=== PATIENT | female | born 1960 | race Caucasian/White ===

== ENCOUNTER 2017-09-10 11:24 | Emergency (ER) | payer SELFPAY ==
[2017-09-10] MEDS ORDERED: NORMAL SALINE 1000 ML 1,000 ML IV PRN (11:35)
[2017-09-10] MEDS ORDERED: KETOROLAC TROMETHAMINE INJ/PF 30 MG/1 ML SDV IV ONE (11:36)
--- NOTE | 2017-09-10 11:37 | ER Document Report ---
ED Medical Screen (RME) - General Chief Complaint: Flank Pain Stated Complaint: POSSIBLE KIDNEY INFECTION Time Seen by Provider: 09/10/17 11:35 Notes: Patient states she is having right lower back pain. She denies any dysuria urgency or frequency. No hematuria. She states she went to urgent care yesterday and was told that they were unsure if she had an infection and also she was told something about "midstream". She states they did give her a shot of antibiotics and send her home with Cipro. She states she feels worse today. TRAVEL OUTSIDE OF THE [place] IN LAST 30 DAYS: No - Related Data Allergies/Adverse Reactions: No Known Drug Allergies Allergy (Verified 09/10/17 11:27) Home Medications: Current Home Medications Tramadol HCl 1 tab PO DAILY PRN 09/10/17 [History] Past Medical History - Social History Chew tobacco use (# tins/day): No Frequency of alcohol use: None Drug Abuse: None Renal/ Medical History: Denies: Hx Peritoneal Dialysis Malignancy Medical History: Reports: Hx Cervical Cancer GI Medical History: Reports: Hx Colonoscopy Past Surgical History: Reports: Hx Cholecystectomy, Hx Hysterectomy, Hx Kidney ( Renal Surgery) - left nephrectomy Physical Exam - Vital signs Vitals: Temp Pulse Resp BP Pulse Ox 98.3 F 70 20 158/71 H 99 09/10/17 11:27 09/10/17 11:27 09/10/17 11:27 09/10/17 11:27 09/10/17 11:27 Course - Vital Signs Vital signs: Temp Pulse Resp BP Pulse Ox 98.3 F 70 20 158/71 H 99 09/10/17 11:27 09/10/17 11:27 09/10/17 11:27 09/10/17 11:27 09/10/17 11:27
[2017-09-10 12:19] LABS: ABSOLUTE EOSINOPHILS # (AUTO) 0.1 10^3/uL (0.0-0.6); ABSOLUTE LYMPHOCYTES (AUTO) 2.1 10^3/uL (0.5-4.7); ABSOLUTE MONOCYTES (AUTO) 0.6 10^3/uL (0.1-1.4); ABSOLUTE NEUT (AUTO) 4.2 10^3/uL (1.7-8.2); BASOPHILS % (AUTO) 0.7 % (0-2); EOSINOPHILS % (AUTO) 1.4 % (0-6); HEMATOCRIT 42.3 % (36.0-47.0); HEMOGLOBIN 14.9 g/dL (12.0-15.5); HGB HCT DIFFERENCE 2.4; LYMPHOCYTES % (AUTO) 30.3 % (13-45); MEAN CORPUSCULAR HEMOGLOBIN 32.6 pg (27.0-33.4); MEAN CORPUSCULAR HGB CONC 35.3 g/dL (32.0-36.0); MEAN CORPUSCULAR VOLUME 92 fl (80-97); MONOCYTES % (AUTO) 8.8 % (3-13); RED BLOOD COUNT 4.57 10^6/uL (3.72-5.28); RED CELL DISTRIBUTION WIDTH 12.8 % (11.5-14.0); SEGMENTED NEUTROPHILS % (AUTO) 58.8 % (42-78); WHITE BLOOD COUNT 7.1 10^3/uL (4.0-10.5)
[2017-09-10 12:24] LABS: APPEARANCE,URINE CLEAR; BILIRUBIN,URINE NEGATIVE (NEGATIVE); GLUCOSE, URINE NEGATIVE (NEGATIVE); KETONES,URINE NEGATIVE (NEGATIVE); LEUKOCYTE ESTERASE,URINE NEGATIVE (NEGATIVE); NITRITE,URINE NEGATIVE (NEGATIVE); PROTEIN,URINE NEGATIVE (NEGATIVE); URINE SPECIFIC GRAVITY 1.002; UROBILINOGEN,URINE NEGATIVE mg/dL (<2.0)
[2017-09-10 12:36] LABS: ALANINE AMINOTRANSFERASE 48 U/L (9-52); ALBUMIN 4.6 g/dL (3.5-5.0); ALKALINE PHOSPHATASE 58 U/L (38-126); ANION GAP 12 (5-19); ASPARTATE AMINO TRANSFERASE 42 U/L (14-36); BILIRUBIN,DIRECT 0.5 mg/dL (0.0-0.4); BILIRUBIN,TOTAL 0.7 mg/dL (0.2-1.3); BLOOD UREA NITROGEN 16 mg/dL (7-20); CALCIUM 9.8 mg/dL (8.4-10.2); CARBON DIOXIDE 27 mmol/L (22-30); CHLORIDE 104 mmol/L (98-107); GLUCOSE 79 mg/dL (75-110); SODIUM 142.8 mmol/L (137-145); TOTAL PROTEIN 7.5 g/dL (6.3-8.2)
--- NOTE | 2017-09-10 15:03 | RADIOLOGY REPORT (SQ) ---
EXAM DESCRIPTION: CT LTD RENAL STONE PROTOCOL ON COMPLETED DATE/TIME: 09/10/2017 2:17 pm REASON FOR STUDY: right flank COMPARISON: None. TECHNIQUE: CT scan of the abdomen and pelvis performed without intravenous or oral contrast. Images reviewed with lung, soft tissue, and bone windows. Reconstructed coronal and sagittal MPR images revi ewed. All images stored on PACS. All CT scanners at this facility use dose modulation, iterative reconstruction, and/or weight based d osing when appropriate to reduce radiation dose to as low as reasonably achievable (ALARA). [facility]: Dose Right [facility]: CareDose [facility]: Dose Right [facility]: Teradose 4D [facility]: [employer] Technologies RADIATION DOSE: CT Rad equipment meets quality standard of care and radiation dose reduction techniq ues were employed. CTDIvol: 3.2 mGy. DLP: 167 mGy-cm.mGy. LIMITATIONS: None. FINDINGS: LOWER CHEST: No significant findings. No nodules or infiltrates. NON-CONTRASTED LIVER, SPLEEN, ADRENALS: Multiple hepatic cysts. No solid liver lesions. No ductal d ilatation. PANCREAS: No masses. No peripancreatic inflammatory changes. GALLBLADDER: No identified stones by CT criteria. No inflammatory changes to suggest cholecystitis. RIGHT KIDNEY AND URETER: No suspicious masses. Assessment limited by lack of IV contrast. No signif icant calcifications. No hydronephrosis or hydroureter. LEFT KIDNEY AND URETER -status post nephrectomy. Postoperative clips. AORTA AND RETROPERITONEUM: No aneurysm. No retroperitoneal masses or adenopathy. BOWEL AND PERITONEAL CAVITY: No obvious masses or inflammatory changes. No free fluid. APPENDIX: Normal. PELVIS, BLADDER, AND ABDOMINAL WALL:No abnormal masses. No free fluid. Bladder normal. BONES: Scoliosis OTHER: No other significant finding. IMPRESSION: Status post left nephrectomy. No pathology involving the right kidney or bladder. No a cute findings to explain the patient's clinical symptoms. COMMENT: Quality ID # [id number]: Final reports with documentation of one or more dose reduction techniques (e.g., Automated exposure control, adjustment of the mA and/or kV according to patient size, use of iterative reconstruction technique) TECHNICAL DOCUMENTATION: JOB ID: [id number]- All Rights Reserved
--- NOTE | 2017-09-10 16:07 | ER Document Report ---
ED General - General Chief Complaint: Flank Pain Stated Complaint: POSSIBLE KIDNEY INFECTION Time Seen by Provider: 09/10/17 11:35 TRAVEL OUTSIDE OF THE [place] IN LAST 30 DAYS: No - HPI Patient complains to provider of: Right flank pain Notes: Patient coming in for evaluation of right flank pain. Patient has a history of a left nephrectomy. Patient states was seen yesterday local urgent care diagnosed with UTIs that she had bacteria in the urine however patient states last night started having severe right flank pain. Patient is concerned about a kidney stone. Denies fever chills nausea vomiting diarrhea. Patient states compliant with her medications. Patient upon my evaluation is resting comfortably. Patient states the pain is spasm he coming in episodes and waves - Related Data Allergies/Adverse Reactions: No Known Drug Allergies Allergy (Verified 09/10/17 11:27) Home Medications: Current Home Medications Tramadol HCl 1 tab PO DAILY PRN 09/10/17 [History] Past Medical History - Social History Smoking Status: Current Every Day Smoker Chew tobacco use (# tins/day): No Frequency of alcohol use: None Drug Abuse: None Family History: Other - Strong family history of Diverticulitis. Patient has suicidal ideation: No Patient has homicidal ideation: No Renal/ Medical History: Denies: Hx Peritoneal Dialysis Malignancy Medical History: Reports: Hx Cervical Cancer GI Medical History: Reports: Hx Colonoscopy Past Surgical History: Reports: Hx Cholecystectomy, Hx Hysterectomy, Hx Kidney ( Renal Surgery) - left nephrectomy Review of Systems - Review of Systems Constitutional: No symptoms reported EENT: No symptoms reported Cardiovascular: No symptoms reported Respiratory: No symptoms reported Gastrointestinal: No symptoms reported Genitourinary: Flank pain Female Genitourinary: No symptoms reported Musculoskeletal: No symptoms reported Skin: No symptoms reported Hematologic/Lymphatic: No symptoms reported Neurological/Psychological: No symptoms reported -: Yes All other systems reviewed and negative Physical Exam - Vital signs Vitals: Temp Pulse Resp BP Pulse Ox 98.3 F 70 20 158/71 H 99 09/10/17 11:27 09/10/17 11:27 09/10/17 11:27 09/10/17 11:27 09/10/17 11:27 Interpretation: Normal - General General appearance: Appears well, Alert - HEENT Head: Normocephalic, Atraumatic Eyes: Normal Pupils: PERRL - Respiratory Respiratory status: No respiratory distress Chest status: Nontender Breath sounds: Normal Chest palpation: Normal - Cardiovascular Rhythm: Regular Heart sounds: Normal auscultation Murmur: No - Abdominal Inspection: Normal Distension: No distension Bowel sounds: Normal Tenderness: Nontender Organomegaly: No organomegaly - Back Back: Normal, Nontender - Extremities General upper extremity: Normal inspection, Nontender, Normal color, Normal ROM , Normal temperature General lower extremity: Normal inspection, Nontender, Normal color, Normal ROM , Normal temperature, Normal weight bearing. No: Britton's sign - Neurological Neuro grossly intact: Yes Cognition: Normal Orientation: AAOx4 Fahad Coma Scale Eye Opening: Spontaneous F[place]ad Coma Scale Verbal: Oriented Fahad Coma Scale Motor: Obeys Commands [place] Coma Scale Total: 15 Speech: Normal Motor strength normal: LUE, RUE, LLE, RLE Sensory: Normal - Psychological Associated symptoms: Normal affect, Normal mood - Skin Skin Temperature: Warm Skin Moisture: Dry Skin Color: Normal Course - Re-evaluation Re-evalutation: 09/10/17 18:26 CT scan urinalysis and laboratory studies not reveal any critical pathology. I had no reason for the patient's flank pain this time also have noted emergent criteria for her flank pain patient may be having ureteral spasms or muscle spasms. Patient already has a prescription for Percocet patient is to continue her Percocet also add Pyridium patient will be discharged home - Vital Signs Vital signs: Temp Pulse Resp BP Pulse Ox 98.2 F 72 20 108/65 97 09/10/17 16:19 09/10/17 16:19 09/10/17 11:27 09/10/17 16:19 09/10/17 16:19 - Laboratory Result Diagrams: 09/10/17 11:40 09/10/17 11:40 Laboratory results interpreted by me: 09/10/17 11:40 Direct Bilirubin 0.5 H AST 42 H Discharge - Discharge Clinical Impression: Flank pain Condition: Good Disposition: HOME, SELF-CARE Instructions: Flank Pain ([facility]) Additional Instructions: You were seen today for flank pain. Your CAT scan laboratory studies not reveal any critical pathology. The CAT scan does not show any signs of kidney stones or other infection your urinalysis also does not show any signs of infection. Please continue the medications prescribed by the urgent care he recently saw. We can also try to treat her pain with Pyridium. I would also recommend taking Tylenol Motrin follow-up with your primary care physician in the next 3-4 days Prescriptions: Phenazopyridine HCl [Pyridium 100 Mg Tablet] 100 mg PO TID #15 tablet Forms: Return to Work
[2017-09-10 16:28] VITALS: BP 108/65
== END 2017-09-10 16:29 | disposition home or self-care (01) ==
LOC: ER 11:24
DX: R10.9 Unspecified abdominal pain (principal); Z90.5 Acquired absence of kidney; F17.200 Nicotine dependence, unspecified, uncomplicated; Z79.899 Other long term (current) drug therapy
CPT/HCPCS: 99284; 96361; 96374; 36415; 85025; 80053; 81001; 76380; J1885; J7030

== ENCOUNTER 2018-08-14 17:15 | Emergency (ER) | payer OTHER ==
--- NOTE | 2018-08-14 18:23 | RADIOLOGY REPORT (SQ) ---
EXAM DESCRIPTION: CHEST 2 VIEWS COMPLETED DATE/TIME: 08/14/2018 6:09 pm REASON FOR STUDY: cough COMPARISON: None. EXAM PARAMETERS: NUMBER OF VIEWS: two views TECHNIQUE: Digital Frontal and Lateral radiographic views of the chest acquired. RADIATION DOSE: NA LIMITATIONS: none FINDINGS: LUNGS AND PLEURA: No opacities, masses or pneumothorax. No pleural effusion. MEDIASTINUM AND HILAR STRUCTURES: No masses or contour abnormalities. HEART AND VASCULAR STRUCTURES: Heart normal size. No evidence for failure. BONES: No acute findings. HARDWARE: None in the chest. OTHER: No other significant finding. IMPRESSION: NO ACUTE RADIOGRAPHIC FINDING IN THE CHEST. TECHNICAL DOCUMENTATION: JOB ID: [id number] [employer]- All Rights Reserved Reading location - IP/workstation name: [email or web address]
[2018-08-14] MEDS ORDERED: IPRATROPIUM/ALBUTEROL 0.5-2.5 MG/3 ML AMPUL NEB ONE (18:24)
[2018-08-14] MEDS ORDERED: ACETAMINOPHEN WITH CODEINE #3 TABLET PO ONE (18:24)
[2018-08-14 18:54] LABS: ABSOLUTE BASOPHILS # (AUTO) 0.1 10^3/uL (0.0-0.2); ABSOLUTE LYMPHOCYTES (AUTO) 2.4 10^3/uL (0.5-4.7); ABSOLUTE MONOCYTES (AUTO) 0.8 10^3/uL (0.1-1.4); ABSOLUTE NEUT (AUTO) 3.7 10^3/uL (1.7-8.2); BASOPHILS % (AUTO) 1.1 % (0-2); EOSINOPHILS % (AUTO) 12.1 % (0-6); HEMATOCRIT 42.9 % (36.0-47.0); HEMOGLOBIN 14.6 g/dL (12.0-15.5); LYMPHOCYTES % (AUTO) 29.9 % (13-45); MEAN CORPUSCULAR HEMOGLOBIN 31.7 pg (27.0-33.4); MEAN CORPUSCULAR HGB CONC 34.1 g/dL (32.0-36.0); MEAN CORPUSCULAR VOLUME 93 fl (80-97); MONOCYTES % (AUTO) 9.9 % (3-13); PLATELET COUNT 279 10^3/uL (150-450); RED BLOOD COUNT 4.61 10^6/uL (3.72-5.28); TOTAL CELLS COUNTED % (AUTO) 100 %; WHITE BLOOD COUNT 7.9 10^3/uL (4.0-10.5)
--- NOTE | 2018-08-14 19:06 | ER Document Report ---
ED Respiratory Problem - General Chief Complaint: Cold Symptoms Stated Complaint: COUGH, DIFFICULTY BREATHING Time Seen by Provider: 08/14/18 18:13 Mode of Arrival: Ambulatory Information source: Patient Notes: Patient is a 58-year-old female comes emergency room short of breath and wheezing. Patient did not denies any history of asthma in the past but states for the past 4-5 days she has had congestion runny nose and her cough has gotten severe. Patient states she is coughing up scant amount of some green stuff. She states she has had chills but no fever that she is noted. She has no past medical history. TRAVEL OUTSIDE OF THE [place] IN LAST 30 DAYS: No - HPI Patient complains to provider of: Asthma, Cough, Short of breath Onset: Other - 4 days ago Quality of pain: Achy Severity: Moderate Pain Level: 3 Short of Breath: Moderate Chest pain/discomfort: Constant, Worse with deep breaths Cough: Productive Sputum amount: Small Sputum color: Green, Yellow Sputum consistency: Thick Associated symptoms: Chills, Runny nose, Short of breath, Wheezing Similar symptoms previously: No Recently seen / treated by doctor: No - Related Data Allergies/Adverse Reactions: No Known Drug Allergies Allergy (Verified 09/10/17 11:27) Past Medical History - General Information source: Patient - Social History Smoking Status: Current Every Day Smoker Cigarette use (# per day): Yes - 1 pack a week Chew tobacco use (# tins/day): No Smoking Education Provided: Yes Frequency of alcohol use: Rare Drug Abuse: None Lives with: Family, Spouse/Significant other Family History: Reviewed & Not Pertinent, Other - Strong family history of Diverticulitis. Patient has suicidal ideation: No Patient has homicidal ideation: No Renal/ Medical History: Denies: Hx Peritoneal Dialysis Malignancy Medical History: Reports: Hx Cervical Cancer GI Medical History: Reports: Hx Colonoscopy Past Surgical History: Reports: Hx Cholecystectomy, Hx Hysterectomy, Hx Kidney ( Renal Surgery) - left nephrectomy Review of Systems - Review of Systems Constitutional: Fever, Malaise, Weakness EENT: See HPI, Nose congestion, Sinus pressure Cardiovascular: No symptoms reported Respiratory: Hurts to breathe, Short of breath, Wheezing Gastrointestinal: No symptoms reported Genitourinary: No symptoms reported Female Genitourinary: No symptoms reported Musculoskeletal: No symptoms reported Skin: No symptoms reported Hematologic/Lymphatic: No symptoms reported Neurological/Psychological: No symptoms reported -: Yes All other systems reviewed and negative Physical Exam - Vital signs Vitals: Temp Pulse Resp BP Pulse Ox 98.1 F 65 22 H 131/85 H 98 08/14/18 17:41 08/14/18 17:41 08/14/18 17:41 08/14/18 17:41 08/14/18 17:41 Interpretation: Hypertensive - Notes Notes: PHYSICAL EXAMINATION: GENERAL: Well-appearing, well-nourished and in no acute distress. HEAD: Atraumatic, normocephalic. EYES: Pupils equal round and reactive to light, extraocular movements intact, conjunctiva are normal. ENT: Examination of head and upper airway showed nasal mucosa to be moderately erythematous and edematous with rhinorrhea noted clear. Patient has no frontal or maxillary sinus tenderness to palpation. Examination of bilateral TMs show them both to be bulging with no fluid levels noted. External canals have some cerumen but not enough to include visions of the TM. All landmarks are seen and identified. Further examination of the oral cavity shows the posterior pharynx to be moderately erythematous there is no exudate noted. Uvula is midline there is no encroachment upon the uvula. There is mild erythema to the uvula. There is moderate amount of drainage in the posterior pharynx that is light green. Patient does display moderate amount of nasal congestion as well. NECK: Normal range of motion, supple without lymphadenopathy LUNGS: The patient and patient's lung de la cruz show she has bilateral breath sounds breath sounds are decreased severely with noted tight inspiratory expiratory audible wheeze without stethoscope. With the stethoscope patient's has some scattered rhonchi throughout the upper airways. HEART: Regular rate and rhythm without murmurs ABDOMEN: Soft, nontender, nondistended abdomen. No guarding, no rebound. No masses appreciated. Female : deferred Musculoskeletal: Normal range of motion, no pitting or edema. No cyanosis. NEUROLOGICAL: Cranial nerves grossly intact. Normal speech, normal gait. Normal sensory, motor exams PSYCH: Normal mood, normal affect. SKIN: Warm, Dry, normal turgor, no rashes or lesions noted. Course - Re-evaluation Re-evalutation: 08/14/18 19:43 Patient received IV Solu-Medrol and also a continuous DuoNeb for approximately 45 minutes. She was then left alone for approximately an hour and reevaluated. Patient was found to have improved substantially. The audible wheezing without stethoscope was gone and with a stethoscope patient had inspiratory and expiratory wheeze that was very faint but she was moving a lot more air. She also was able to take deep breaths without coughing uncontrollably. I have given patient a Tylenol 3 for the cough and it seemed to be working very well. I have talked to the and patient about possibility of getting a nebulizer they are considering it. They state they do not have prescription coverage to cover the machine. I have informed them of the [employer] stores are good placed take these machines up. They are not contaminated because they blow air out so if they wipe down the outside they are during free. And they can always go to the expensive purchasing one. I have explained to them that the [facility] version of the DuoNeb is about $10 for 60 vials of the treatment and the cost savings compared to using an MDI is remarkable. I have explained to them the ups and downs of an MDI but will also write for 1 of those as well. We will place her on a steroid taper and the MDI and albuterol nebs. - Vital Signs Vital signs: Temp Pulse Resp BP Pulse Ox 98.1 F 65 22 H 131/85 H 98 08/14/18 17:41 08/14/18 17:41 08/14/18 17:41 08/14/18 17:41 08/14/18 17:41 - Laboratory Result Diagrams: 08/14/18 18:44 08/14/18 18:44 Laboratory results interpreted by me: 08/14/18 08/14/18 18:44 18:44 Eosinophils % 12.1 H Absolute Eosinophils 1.0 H BUN 23 H Discharge - Discharge Clinical Impression: Asthmatic bronchitis Qualifiers: Asthma severity: moderate Asthma persistence: persistent Asthma complication type: uncomplicated Qualified Code(s): J45.40 - Moderate persistent asthma, uncomplicated Condition: Stable Disposition: HOME, SELF-CARE Instructions: Bronchitis With Bronchospasm (Wheezing) ([facility]) Additional Instructions: Home tonight and rest. As we discussed 1 of the nebulizer machines would be perfect for you. I believe there are 35 or $40 at a pharmacy however [employer] stores are always a possibility to I am writing you for the medication for the nebulizer however if you do not get one do not get the medication. I am also writing you a inhaler you may use it place of the nebulizer or you can use it in conjunction with the nebulizer when you are out and about. Take all of the steroid taper medication. Should you have any concerns or problems return to ER for recheck. Also writing you for the cough suppressant that you took in the emergency room. Prescriptions: Acetaminophen with Codeine [Tylenol #3 Tablet] 1 each PO Q6HP PRN #20 tablet PRN Reason: Albuterol Sulfate [Proair Hfa Inhalation Aerosol 8.5 gm Mdi] 1 puff IH Q4 PRN # 1 mdi PRN Reason: Ipratropium/Albuterol Sulfate [Duoneb 3 ml Ampul] 3 ml NEB RTQ6 PRN #60 vial.neb PRN Reason: Prednisone [Sterapred Ds] 10 mg PO ASDIR PRN 6 Days #1 tab.ds.pk PRN Reason: Forms: Elevated Blood Pressure, Smoking Cessation Education Referrals: [facility] [NO [facility]AL MD] - Follow up as needed
[2018-08-14 19:15] LABS: ALANINE AMINOTRANSFERASE 14 U/L (9-52); ALBUMIN 4.5 g/dL (3.5-5.0); ALKALINE PHOSPHATASE 59 U/L (38-126); ANION GAP 10 (5-19); ASPARTATE AMINO TRANSFERASE 20 U/L (14-36); BILIRUBIN,DIRECT 0.3 mg/dL (0.0-0.4); BILIRUBIN,TOTAL 0.4 mg/dL (0.2-1.3); BLOOD UREA NITROGEN 23 mg/dL (7-20); CALCIUM 9.6 mg/dL (8.4-10.2); CARBON DIOXIDE 28 mmol/L (22-30); CHLORIDE 105 mmol/L (98-107); GLUCOSE 97 mg/dL (75-110); POTASSIUM 4.8 mmol/L (3.6-5.0); SODIUM 143.1 mmol/L (137-145); TOTAL PROTEIN 7.4 g/dL (6.3-8.2)
[2018-08-14 20:04] VITALS: BP 110/77
== END 2018-08-14 20:17 | disposition home or self-care (01) ==
LOC: ER 17:15
DX: J45.40 Moderate persistent asthma, uncomplicated (principal); R05 Cough; F17.200 Nicotine dependence, unspecified, uncomplicated; Z85.41 Personal history of malignant neoplasm of cervix uteri; Z90.49 Acquired absence of other specified parts of digestive tract; Z90.710 Acquired absence of both cervix and uterus; Z90.5 Acquired absence of kidney
CPT/HCPCS: 94640; 99284; 36415; 85025; 80053; 83605; 71046; J7620

== ENCOUNTER 2019-05-24 18:07 | Observation (INO) | payer SELFPAY ==
[2019-05-24] MEDS ORDERED: NORMAL SALINE 1000 ML 1,000 ML IV ONE ×2 (18:31→21:26)
[2019-05-24 18:34] LABS: ABSOLUTE EOSINOPHILS # (AUTO) 0.1 10^3/uL (0.0-0.6); ABSOLUTE LYMPHOCYTES (AUTO) 1.8 10^3/uL (0.5-4.7); ABSOLUTE MONOCYTES (AUTO) 0.8 10^3/uL (0.1-1.4); ABSOLUTE NEUT (AUTO) 12.9 10^3/uL (1.7-8.2); BASOPHILS % (AUTO) 0.3 % (0-2); EOSINOPHILS % (AUTO) 0.6 % (0-6); HEMATOCRIT 41.2 % (36.0-47.0); HEMOGLOBIN 13.9 g/dL (12.0-15.5); LYMPHOCYTES % (AUTO) 11.7 % (13-45); MEAN CORPUSCULAR HEMOGLOBIN 31.3 pg (27.0-33.4); MEAN CORPUSCULAR HGB CONC 33.8 g/dL (32.0-36.0); MEAN CORPUSCULAR VOLUME 93 fl (80-97); MONOCYTES % (AUTO) 4.8 % (3-13); PLATELET COUNT 273 10^3/uL (150-450); RED BLOOD COUNT 4.44 10^6/uL (3.72-5.28); RED CELL DISTRIBUTION WIDTH 12.9 % (11.5-14.0); SEGMENTED NEUTROPHILS % (AUTO) 82.6 % (42-78); TOTAL CELLS COUNTED % (AUTO) 100 %; WHITE BLOOD COUNT 15.6 10^3/uL (4.0-10.5)
--- NOTE | 2019-05-24 18:37 | ER Document Report ---
ED General - General Stated Complaint: POSSIBLE ANXIETY Time Seen by Provider: 05/24/19 18:15 Notes: This is a 58-year-old female patient emergency department chief complaint of altered mental status. EMS was called. When they arrived patient was quite somnolent. They did a blood sugar test on her and it was 38. She was given glucose. Rechecked prior to arrival and blood sugar is over 100. Patient states that she was having a panic attack earlier today. Has a history of panic attacks. Under a lot of stress. A friend gave her a pill which she thought was Xanax but now she does not know what it was. Was also drinking alcohol today. Had a large glass of wine. Was not attempting to hurt herself in any way. She denies any chest pain or other issues at this time. Feels excessively weak. TRAVEL OUTSIDE OF THE [place] IN LAST 30 DAYS: No - HPI Onset: Just prior to arrival Associated symptoms: Weakness Exacerbated by: Standing - Related Data Allergies/Adverse Reactions: No Known Drug Allergies Allergy (Verified 05/01/19 09:21) Past Medical History - General Information source: Patient - Social History Smoking Status: Current Some Day Smoker Frequency of alcohol use: Occasional Drug Abuse: None Lives with: Family Family History: Reviewed & Not Pertinent, Other - Strong family history of Diverticulitis. Pulmonary Medical History: Reports: Hx Asthma, Hx Bronchitis, Hx COPD - ?? Renal/ Medical History: Denies: Hx Peritoneal Dialysis Malignancy Medical History: Reports: Hx Cervical Cancer GI Medical History: Reports: Hx Colonoscopy Past Surgical History: Reports: Hx Cholecystectomy, Hx Hysterectomy, Hx Kidney (Renal Surgery) - left nephrectomy Review of Systems - Review of Systems Notes: Constitutional: denies: Chills, Diaphoresis, Fever, +Malaise, +Weakness EENT: denies: Eye discharge, Blurred vision, Tearing, Double vision, Nose congestion, Nose discharge, Throat swelling, Mouth pain Cardiovascular: denies: Palpitations, Heart racing, Orthopnea, Dyspnea, Chest pain Respiratory: denies: Cough, Hurts to breathe, Wheezing, Shortness of breath Gastrointestinal: denies: Abdominal pain, Diarrhea, Nausea, Vomiting, Black stools, bright red blood in stool Genitourinary: denies: Burning, Dysuria, Discharge, Frequency, Flank pain, Hematuria Musculoskeletal: denies: Joint pain, Joint swelling, Muscle pain, Muscle stiffness, back pain Hematologic/Lymphatic: denies: Anemia, Easy bleeding, Easy bruising, Blood clots Neurological/Psychological: denies: Confusion, Dementia, Depression, Loss of consciousness, + anxiety Skin: No lesions, no masses, no skin breakdown, no abscesses Physical Exam - Vital signs Vitals: Temp Resp BP Pulse Ox 97.9 F 16 112/78 96 05/24/19 18:27 05/24/19 18:27 05/24/19 18:27 05/24/19 18:27 Interpretation: Hypotensive - 90/60 - Notes Notes: Smell of alcohol on breath - General General appearance: Appears well, Lethargic, Other - Answering questions appropriately. - HEENT Head: Normocephalic, Atraumatic Eyes: Normal Pupils: PERRL - Respiratory Respiratory status: No respiratory distress Chest status: Nontender Breath sounds: Normal Chest palpation: Normal - Cardiovascular Rhythm: Regular Heart sounds: Normal auscultation Murmur: No - Abdominal Inspection: Normal Distension: No distension Bowel sounds: Normal Tenderness: Nontender Organomegaly: No organomegaly - Back Back: Normal, Nontender - Extremities General upper extremity: Normal inspection, Nontender, Normal color, Normal ROM, Normal temperature General lower extremity: Normal inspection, Nontender, Normal color, Normal ROM, Normal temperature. No: Britton's sign - Neurological Neuro grossly intact: Yes Cognition: Normal Orientation: AAOx4 [place] Coma Scale Eye Opening: Spontaneous [place] Coma Scale Verbal: Oriented [place] Coma Scale Motor: Obeys Commands [place] Coma Scale Total: 15 Speech: Normal Motor strength normal: LUE, RUE, LLE, RLE Sensory: Normal - Psychological Associated symptoms: Normal affect, Normal mood - Skin Skin Temperature: Warm Skin Moisture: Dry Skin Color: Normal Course - Re-evaluation Re-evalutation: 05/24/19 19:06 Patient's alcohol is moderately elevated. Elevated WBC count and hypotensive so adding some blood cultures lactic acid but unlikely this is a septic episode. More likely is a substance issue mix with alcohol. Awaiting toxicology results. 05/24/19 21:55 Patient remains persistently hypotensive and excessively somnolent. No signs of trauma. Her heart rate is in the 60s and 70s. Resting company on oxygen with sats of 94% but her blood pressure is 90/60. Respiratory rate is a little low at 12. Feel very uncomfortable with her persistent hypotension letting her go. She would be better served by being admitted for to the IM for observation. Will consult with hospitalist for admission shortly. Tox screen was positive for amphetamines as well as benzodiazepines. As well as alcohol. Bicarb is a little low. Patient is afebrile. Laboratory 05/24/19 05/24/19 05/24/19 18:18 18:18 18:18 WBC 15.6 H RBC 4.44 Hgb 13.9 Hct 41.2 MCV 93 MCH 31.3 MCHC 33.8 RDW 12.9 Plt Count 273 Seg Neutrophils % 82.6 H Lymphocytes % 11.7 L Monocytes % 4.8 Eosinophils % 0.6 Basophils % 0.3 Absolute Neutrophils 12.9 H Absolute Lymphocytes 1.8 Absolute Monocytes 0.8 Absolute Eosinophils 0.1 Absolute Basophils 0.0 VBG pH VBG pCO2 VBG HCO3 VBG Base Excess Sodium 141.2 Potassium 3.8 Chloride 106 Carbon Dioxide 20 L Anion Gap 15 BUN 19 Creatinine 1.01 Est GFR ( Amer) > 60 Est GFR (Non-Af Amer) 56 L Glucose 168 H POC Glucose Lactic Acid Calcium 9.2 Total Bilirubin 0.4 Direct Bilirubin 0.2 Neonat Total Bilirubin Not Reportable Neonat Direct Bilirubin Not Reportable Neonat Indirect Bili Not Reportable AST 25 ALT 19 Alkaline Phosphatase 66 Troponin I < 0.012 Total Protein 6.8 Albumin 4.3 Urine Color Urine Appearance Urine pH Ur Specific [place] Urine Protein Urine Glucose (UA) Urine Ketones Urine Blood Urine Nitrite Urine Bilirubin Urine Urobilinogen Ur Leukocyte Esterase Urine WBC (Auto) Urine RBC (Auto) Urine Bacteria (Auto) Squamous Epi Cells Auto Urine Mucus (Auto) Urine Ascorbic Acid Salicylates Urine Opiates Screen Urine Methadone Screen Acetaminophen Ur Barbiturates Screen Ur Phencyclidine Scrn Ur Amphetamines Screen U Benzodiazepines Scrn Urine Cocaine Screen U Marijuana (THC) Screen Serum Alcohol 139 05/24/19 05/24/19 05/24/19 18:18 18:37 19:05 WBC RBC Hgb Hct MCV MCH MCHC RDW Plt Count Seg Neutrophils % Lymphocytes % Monocytes % Eosinophils % Basophils % Absolute Neutrophils Absolute Lymphocytes Absolute Monocytes Absolute Eosinophils Absolute Basophils VBG pH VBG pCO2 VBG HCO3 VBG Base Excess Sodium Potassium Chloride Carbon Dioxide Anion Gap BUN Creatinine Est GFR ( Amer) Est GFR (Non-Af Amer) Glucose POC Glucose 128 H 132 H Lactic Acid Calcium Total Bilirubin Direct Bilirubin Neonat Total Bilirubin Neonat Direct Bilirubin Neonat Indirect Bili AST ALT Alkaline Phosphatase Troponin I Total Protein Albumin Urine Color Urine Appearance Urine pH Ur Specific [place] Urine Protein Urine Glucose (UA) Urine Ketones Urine Blood Urine Nitrite Urine Bilirubin Urine Urobilinogen Ur Leukocyte Esterase Urine WBC (Auto) Urine RBC (Auto) Urine Bacteria (Auto) Squamous Epi Cells Auto Urine Mucus (Auto) Urine Ascorbic Acid Salicylates < 1.0 L Urine Opiates Screen Urine Methadone Screen Acetaminophen < 10 L Ur Barbiturates Screen Ur Phencyclidine Scrn Ur Amphetamines Screen U Benzodiazepines Scrn Urine Cocaine Screen U Marijuana (THC) Screen Serum Alcohol 05/24/19 05/24/19 05/24/19 19:21 19:21 20:03 WBC RBC Hgb Hct MCV MCH MCHC RDW Plt Count Seg Neutrophils % Lymphocytes % Monocytes % Eosinophils % Basophils % Absolute Neutrophils Absolute Lymphocytes Absolute Monocytes Absolute Eosinophils Absolute Basophils VBG pH VBG pCO2 VBG HCO3 VBG Base Excess Sodium Potassium Chloride Carbon Dioxide Anion Gap BUN Creatinine Est GFR ( Amer) Est GFR (Non-Af Amer) Glucose POC Glucose 134 H Lactic Acid Calcium Total Bilirubin Direct Bilirubin Neonat Total Bilirubin Neonat Direct Bilirubin Neonat Indirect Bili AST ALT Alkaline Phosphatase Troponin I Total Protein Albumin Urine Color YELLOW Urine Appearance SLIGHTLY-CLOUDY Urine pH 5.0 Ur Specific [place] 1.006 Urine Protein NEGATIVE Urine Glucose (UA) NEGATIVE Urine Ketones TRACE H Urine Blood NEGATIVE Urine Nitrite POSITIVE H Urine Bilirubin NEGATIVE Urine Urobilinogen NEGATIVE Ur Leukocyte Esterase NEGATIVE Urine WBC (Auto) 0 Urine RBC (Auto) 1 Urine Bacteria (Auto) TRACE Squamous Epi Cells Auto <1 Urine Mucus (Auto) RARE Urine Ascorbic Acid NEGATIVE Salicylates Urine Opiates Screen NEGATIVE Urine Methadone Screen NEGATIVE Acetaminophen Ur Barbiturates Screen NEGATIVE Ur Phencyclidine Scrn NEGATIVE Ur Amphetamines Screen UNCONFIRMED POSITIVE U Benzodiazepines Scrn UNCONFIRMED POSITIVE Urine Cocaine Screen NEGATIVE U Marijuana (THC) Screen NEGATIVE Serum Alcohol 05/24/19 05/24/19 20:50 20:50 WBC RBC Hgb Hct MCV MCH MCHC RDW Plt Count Seg Neutrophils % Lymphocytes % Monocytes % Eosinophils % Basophils % Absolute Neutrophils Absolute Lymphocytes Absolute Monocytes Absolute Eosinophils Absolute Basophils VBG pH 7.32 VBG pCO2 41.6 VBG HCO3 21.1 VBG Base Excess -4.6 Sodium Potassium Chloride Carbon Dioxide Anion Gap BUN Creatinine Est GFR ( Amer) Est GFR (Non-Af Amer) Glucose POC Glucose Lactic Acid 2.1 Calcium Total Bilirubin Direct Bilirubin Neonat Total Bilirubin Neonat Direct Bilirubin Neonat Indirect Bili AST ALT Alkaline Phosphatase Troponin I Total Protein Albumin Urine Color Urine Appearance Urine pH Ur Specific [place] Urine Protein Urine Glucose (UA) Urine Ketones Urine Blood Urine Nitrite Urine Bilirubin Urine Urobilinogen Ur Leukocyte Esterase Urine WBC (Auto) Urine RBC (Auto) Urine Bacteria (Auto) Squamous Epi Cells Auto Urine Mucus (Auto) Urine Ascorbic Acid Salicylates Urine Opiates Screen Urine Methadone Screen Acetaminophen Ur Barbiturates Screen Ur Phencyclidine Scrn Ur Amphetamines Screen U Benzodiazepines Scrn Urine Cocaine Screen U Marijuana (THC) Screen Serum Alcohol Chest X-Ray 05/24/19 19:05 IMPRESSION: NO ACUTE FINDINGS. 05/24/19 22:17 Hourly checks are being performed. The third glucose check was performed and her blood sugar was 62. Amp of D50 ordered. Patient is called and shaking. - Vital Signs Vital signs: Temp Pulse Resp BP Pulse Ox 97.9 F 13 112/78 100 05/24/19 18:27 05/24/19 20:08 05/24/19 20:08 05/24/19 20:08 - Laboratory Result Diagrams: 05/24/19 18:18 05/24/19 18:18 Laboratory results interpreted by me: 05/24/19 05/24/19 05/24/19 18:18 18:18 18:18 WBC 15.6 H Seg Neutrophils % 82.6 H Lymphocytes % 11.7 L Absolute Neutrophils 12.9 H Carbon Dioxide 20 L Est GFR (Non-Af Amer) 56 L Glucose 168 H POC Glucose Urine Ketones Urine Nitrite Salicylates < 1.0 L Acetaminophen < 10 L 05/24/19 05/24/19 05/24/19 18:37 19:05 19:21 WBC Seg Neutrophils % Lymphocytes % Absolute Neutrophils Carbon Dioxide Est GFR (Non-Af Amer) Glucose POC Glucose 128 H 132 H Urine Ketones TRACE H Urine Nitrite POSITIVE H Salicylates Acetaminophen 05/24/19 05/24/19 20:03 22:15 WBC Seg Neutrophils % Lymphocytes % Absolute Neutrophils Carbon Dioxide Est GFR (Non-Af Amer) Glucose POC Glucose 134 H 62 L Urine Ketones Urine Nitrite Salicylates Acetaminophen Critical Care Note - Critical Care Note Total time excluding time spent on procedures (mins): 35 Comments: Altered mental status, possible overdose, hypotension Discharge - Discharge Clinical Impression: Overdose of benzodiazepine Qualifiers: Encounter type: initial encounter Injury intent: undetermined intent Qualified Code(s): T42.4X4A - Poisoning by benzodiazepines, undetermined, initial encounter Alcohol intoxication Qualifiers: Complication of substance-induced condition: uncomplicated Qualified Code(s): F10.920 - Alcohol use, unspecified with intoxication, uncomplicated Hypotension Qualifiers: Hypotension type: unspecified hypotension type Qualified Code(s): I95.9 - Hypotension, unspecified Condition: Good Disposition: ADMITTED INPATIENT Admitting Provider: Andrey (Hospitalist) Unit Admitted: [facility]
[2019-05-24 18:56] LABS: ALBUMIN 4.3 g/dL (3.5-5.0); ALCOHOL 139 mg/dL (NONE DETECTED); ALKALINE PHOSPHATASE 66 U/L (38-126); ANION GAP 15 (5-19); ASPARTATE AMINO TRANSFERASE 25 U/L (14-36); BILIRUBIN,DIRECT 0.2 mg/dL (0.0-0.4); BILIRUBIN,TOTAL 0.4 mg/dL (0.2-1.3); BLOOD UREA NITROGEN 19 mg/dL (7-20); CALCIUM 9.2 mg/dL (8.4-10.2); CARBON DIOXIDE 20 mmol/L (22-30); CHLORIDE 106 mmol/L (98-107); GLUCOSE 168 mg/dL (75-110); POTASSIUM 3.8 mmol/L (3.6-5.0); TOTAL PROTEIN 6.8 g/dL (6.3-8.2)
[2019-05-24 19:35] LABS: ACETAMINOPHEN < 10 ug/mL (10-30); SALICYLATE < 1.0 mg/dL (2.0-20.0)
--- NOTE | 2019-05-24 19:37 | RADIOLOGY REPORT (SQ) ---
EXAM DESCRIPTION: CHEST SINGLE VIEW COMPLETED DATE/TIME: 05/24/2019 7:15 pm REASON FOR STUDY: sob COMPARISON: 05/01/2019 TECHNIQUE: Single frontal radiographic view of the chest acquired. NUMBER OF VIEWS: One view. LIMITATIONS: None. FINDINGS: LUNGS AND PLEURA: No pneumothorax. No consolidation or pleural effusion. MEDIASTINUM AND HILAR STRUCTURES: Stable. HEART AND VASCULAR STRUCTURES: Stable. BONES: No acute findings. HARDWARE: None in the chest. OTHER: No other significant finding. IMPRESSION: NO ACUTE FINDINGS. TECHNICAL DOCUMENTATION: JOB ID: [id number] [id number] 2010 [employer]- All Rights Reserved Reading location - IP/workstation name: [email or web address]
[2019-05-24 20:06] LABS: APPEARANCE,URINE SLIGHTLY-CLOUDY; BILIRUBIN,URINE NEGATIVE (NEGATIVE); COLOR,URINE YELLOW; GLUCOSE, URINE NEGATIVE (NEGATIVE); KETONES,URINE TRACE mg/dL (NEGATIVE); LEUKOCYTE ESTERASE,URINE NEGATIVE (NEGATIVE); NITRITE,URINE POSITIVE (NEGATIVE); PROTEIN,URINE NEGATIVE (NEGATIVE); URINE SPECIFIC GRAVITY 1.006; UROBILINOGEN,URINE NEGATIVE mg/dL (<2.0)
[2019-05-24 20:18] LABS: URINE AMPHETAMINES SCREEN UNCONFIRMED POSITIVE; URINE BARBITURATES SCREEN NEGATIVE; URINE BENZODIAZEPINES SCREEN UNCONFIRMED POSITIVE; URINE COCAINE SCREEN NEGATIVE; URINE MARIJUANA (THC) SCREEN NEGATIVE; URINE METHADONE SCREEN NEGATIVE; URINE PHENCYCLIDINE SCREEN NEGATIVE
[2019-05-24 21:02] LABS: VENOUS BLOOD BASE EXCESS -4.6 mmol/L; VENOUS BLOOD HCO3 21.1 mmol/L (20-32); VENOUS BLOOD PCO2 41.6 mmHg (35-63); VENOUS BLOOD PH 7.32 (7.30-7.42)
[2019-05-24] MEDS ORDERED: DEXTROSE 50%-WATER 25 GM/50 ML DISP.SYRIN IV ONE (22:17)
[2019-05-24] MEDS ORDERED: DEXTROSE 50%-WATER 25 GM/50 ML DISP.SYRIN IV PRN ×2 (22:48)
[2019-05-24] MEDS ORDERED: MAG HYDROX/AL HYDROX/SIMETH SUSP 30 ML UDCUP PO PRN (22:48)
[2019-05-24] MEDS ORDERED: ACETAMINOPHEN 325 MG TABLET PO PRN (22:48)
[2019-05-24] MEDS ORDERED: IPRATROPIUM/ALBUTEROL 0.5-2.5 MG/3 ML AMPUL NEB PRN (22:48)
[2019-05-24] MEDS ORDERED: DEXTROSE 40% GEL 15 GM TUBE PO PRN ×2 (22:48)
[2019-05-24] MEDS ORDERED: GLUCAGON,HUMAN RECOMB 1 MG INJ IM PRN (22:48)
[2019-05-24] MEDS ORDERED: POTASSI CL 20 MEQ/D5-1/2NS 1L 1,000 ML IV ONE (22:51)
[2019-05-24] MEDS ORDERED: TRAZODONE HCL 50 MG TABLET PO ONE (23:00)
--- NOTE | 2019-05-24 23:11 | EKG REPORT ---
SEVERITY:- NORMAL ECG - SINUS RHYTHM : Confirmed by: Janelle Stevenson MD 24-May-2019 23:10:12
[2019-05-24 23:14] LABS: PHOSPHORUS 3.6 mg/dL (2.5-4.5)
[2019-05-25 04:27] LABS: ABSOLUTE BASOPHILS # (AUTO) 0.1 10^3/uL (0.0-0.2); ABSOLUTE EOSINOPHILS # (AUTO) 0.2 10^3/uL (0.0-0.6); ABSOLUTE LYMPHOCYTES (AUTO) 2.3 10^3/uL (0.5-4.7); ABSOLUTE MONOCYTES (AUTO) 0.6 10^3/uL (0.1-1.4); ABSOLUTE NEUT (AUTO) 2.9 10^3/uL (1.7-8.2); BASOPHILS % (AUTO) 1.2 % (0-2); EOSINOPHILS % (AUTO) 3.1 % (0-6); HEMATOCRIT 35.5 % (36.0-47.0); HEMOGLOBIN 12.1 g/dL (12.0-15.5); LYMPHOCYTES % (AUTO) 37.4 % (13-45); MEAN CORPUSCULAR HEMOGLOBIN 31.4 pg (27.0-33.4); MEAN CORPUSCULAR HGB CONC 34.2 g/dL (32.0-36.0); MEAN CORPUSCULAR VOLUME 92 fl (80-97); MONOCYTES % (AUTO) 10.4 % (3-13); PLATELET COUNT 214 10^3/uL (150-450); RED BLOOD COUNT 3.86 10^6/uL (3.72-5.28); RED CELL DISTRIBUTION WIDTH 12.4 % (11.5-14.0); SEGMENTED NEUTROPHILS % (AUTO) 47.9 % (42-78); TOTAL CELLS COUNTED % (AUTO) 100 %
--- NOTE | 2019-05-25 04:28 | PDOC H&P ---
History of Present Illness Admission Date/PCP: 05/24/19 22:25 Patient complains of: Altered mental status History of Present Illness: ALESHIA GONZALEZ is a 58 year old female with a past medical history of anxiety presents with altered mental status. In the emergency room she is found to have hypoglycemia, metabolic acidosis and acutely intoxicated. She received glucose, IV fluids, supportive measures and referred to the hospitalist for admission. Patient is alert oriented x2 stating she believes she was having a panic attack when a friend gave her a little blue pill prior to her presentation. She is otherwise been dieting, drinking alcohol while taking weight loss supplements. She denies chest pain shortness of breath headache or palpitations. Past Medical History Cardiac Medical History: Denies: Congestive Heart Failure, Myocardial Infarction, Hypertension Pulmonary Medical History: Denies: Asthma, Bronchitis, Chronic Obstructive Pulmonary Disease (COPD), Pneumonia, Tuberculosis Neurological Medical History: Denies: Seizures Renal/ Medical History: Denies: End Stage Renal Disease Malignancy Medical History: Reports: Cervical Cancer GI Medical History: Denies: Cirrhosis, Gastroesophageal Reflux Disease Musculoskeltal Medical History: Denies: Arthritis Psychiatric Medical History: Reports: Alcohol Dependency, Tobacco Dependency Denies: Bipolar Disorder, Depression Hematology: Denies: Anemia, Bleeding Tendencies Past Surgical History Past Surgical History: Reports: Cholecystectomy, Hysterectomy Social History Information Source: Patient Lives with: Family Smoking Status: Current Every Day Smoker Frequency of Alcohol Use: Social Drugs: None - Advance Directive Resuscitation Status: Full Code Family History Family History: Hypertension, Other - Strong family history of Diverticulitis. Parental Family History Reviewed: Yes Children Family History Reviewed: Yes Sibling(s) Family History Reviewed.: Yes Medication/Allergy Home Medications: Ciprofloxacin HCl [Cipro 500 mg Tablet] 500 mg PO BID #20 tablet 02/26/16 Phenazopyridine HCl [Pyridium 100 Mg Tablet] 100 mg PO TID #15 tablet 09/10/17 Tramadol HCl 1 tab PO DAILY PRN 09/10/17 Acetaminophen with Codeine [Tylenol #3 Tablet] 1 each PO Q6HP PRN #20 tablet 08/14/18 Albuterol Sulfate [Proair Hfa Inhalation Aerosol 8.5 gm Mdi] 1 puff IH Q4 PRN #1 mdi 08/14/18 Ipratropium/Albuterol Sulfate [Duoneb 3 ml Ampul] 3 ml NEB RTQ6 PRN #60 vial.neb 08/14/18 Prednisone [Sterapred Ds] 10 mg PO ASDIR PRN 6 Days #1 tab.ds.pk 08/14/18 Cephalexin Monohydrate [Keflex 500 mg Capsule] 500 mg PO TID #21 capsule 05/01/19 Allergies/Adverse Reactions: No Known Drug Allergies Allergy (Verified 05/01/19 09:21) Review of Systems ROS unobtainable: Due to mental status Physical Exam Vital Signs: Temp Pulse Resp BP Pulse Ox 98.7 F 82 22 H 123/81 99 05/24/19 23:05 05/25/19 02:13 05/25/19 00:02 05/25/19 00:02 05/25/19 00:02 Intake & Output 05/23/19 05/24/19 05/25/19 11:59 11:59 11:59 Intake Total 1000 Balance 1000 Weight 63.503 kg General appearance: PRESENT: cooperative, disheveled, mild distress, well- developed, well-nourished Head exam: PRESENT: atraumatic, normocephalic Eye exam: PRESENT: conjunctiva pink, EOMI, PERRLA. ABSENT: scleral icterus Ear exam: PRESENT: normal external ear exam Mouth exam: PRESENT: dry mucosa, tongue midline Neck exam: ABSENT: carotid bruit, JVD, lymphadenopathy, thyromegaly Respiratory exam: PRESENT: clear to auscultation kwasi. ABSENT: rales, rhonchi, wheezes Cardiovascular exam: PRESENT: RRR. ABSENT: diastolic murmur, rubs, systolic murmur Pulses: PRESENT: normal dorsalis pedis pul Vascular exam: PRESENT: normal capillary refill GI/Abdominal exam: PRESENT: normal bowel sounds, soft. ABSENT: distended, guarding, mass, organolmegaly, rebound, tenderness Rectal exam: PRESENT: deferred Extremities exam: PRESENT: full ROM. ABSENT: calf tenderness, clubbing, pedal edema Neurological exam: PRESENT: alert, awake, oriented to person, oriented to place, oriented to time, oriented to situation, CN II-XII grossly intact. ABSENT: motor sensory deficit Psychiatric exam: PRESENT: appropriate affect, normal mood. ABSENT: homicidal ideation, suicidal ideation Skin exam: PRESENT: dry, intact, warm. ABSENT: cyanosis, rash Results Laboratory Results: 05/24/19 18:18 05/24/19 18:18 05/24/19 05/24/19 05/24/19 18:18 18:18 18:18 WBC 15.6 H RBC 4.44 Hgb 13.9 Hct 41.2 MCV 93 MCH 31.3 MCHC 33.8 RDW 12.9 Plt Count 273 Seg Neutrophils % 82.6 H Lymphocytes % 11.7 L Monocytes % 4.8 Eosinophils % 0.6 Basophils % 0.3 Absolute Neutrophils 12.9 H Absolute Lymphocytes 1.8 Absolute Monocytes 0.8 Absolute Eosinophils 0.1 Absolute Basophils 0.0 VBG pH VBG pCO2 VBG HCO3 VBG Base Excess Sodium 141.2 Potassium 3.8 Chloride 106 Carbon Dioxide 20 L Anion Gap 15 BUN 19 Creatinine 1.01 Est GFR ( Amer) > 60 Est GFR (Non-Af Amer) 56 L Glucose 168 H Lactic Acid Calcium 9.2 Phosphorus 3.6 Magnesium 2.2 Total Bilirubin 0.4 AST 25 Alkaline Phosphatase 66 Total Protein 6.8 Albumin 4.3 Urine Color Urine Appearance Urine pH Ur Specific [place] Urine Protein Urine Glucose (UA) Urine Ketones Urine Blood Urine Nitrite Ur Leukocyte Esterase Urine WBC (Auto) Urine RBC (Auto) 05/24/19 05/24/19 05/24/19 19:21 20:50 20:50 WBC RBC Hgb Hct MCV MCH MCHC RDW Plt Count Seg Neutrophils % Lymphocytes % Monocytes % Eosinophils % Basophils % Absolute Neutrophils Absolute Lymphocytes Absolute Monocytes Absolute Eosinophils Absolute Basophils VBG pH 7.32 VBG pCO2 41.6 VBG HCO3 21.1 VBG Base Excess -4.6 Sodium Potassium Chloride Carbon Dioxide Anion Gap BUN Creatinine Est GFR ( Amer) Est GFR (Non-Af Amer) Glucose Lactic Acid 2.1 Calcium Phosphorus Magnesium Total Bilirubin AST Alkaline Phosphatase Total Protein Albumin Urine Color YELLOW Urine Appearance SLIGHTLY-CLOUDY Urine pH 5.0 Ur Specific [place] 1.006 Urine Protein NEGATIVE Urine Glucose (UA) NEGATIVE Urine Ketones TRACE H Urine Blood NEGATIVE Urine Nitrite POSITIVE H Ur Leukocyte Esterase NEGATIVE Urine WBC (Auto) 0 Urine RBC (Auto) 1 05/25/19 01:43 WBC RBC Hgb Hct MCV MCH MCHC RDW Plt Count Seg Neutrophils % Lymphocytes % Monocytes % Eosinophils % Basophils % Absolute Neutrophils Absolute Lymphocytes Absolute Monocytes Absolute Eosinophils Absolute Basophils VBG pH VBG pCO2 VBG HCO3 VBG Base Excess Sodium Potassium Chloride Carbon Dioxide Anion Gap BUN Creatinine Est GFR ( Amer) Est GFR (Non-Af Amer) Glucose Lactic Acid 1.4 Calcium Phosphorus Magnesium Total Bilirubin AST Alkaline Phosphatase Total Protein Albumin Urine Color Urine Appearance Urine pH Ur Specific [place] Urine Protein Urine Glucose (UA) Urine Ketones Urine Blood Urine Nitrite Ur Leukocyte Esterase Urine WBC (Auto) Urine RBC (Auto) 05/24/19 18:18 Troponin I < 0.012 Impressions: Chest X-Ray 05/24/19 19:05 IMPRESSION: NO ACUTE FINDINGS. Assessment and Plan - Diagnosis (1) Acute encephalopathy Is this a current diagnosis for this admission?: Yes Plan: Multifactorial secondary to anxiety with panic, amphetamine use, benzodiazepine and alcohol. Supportive care (2) Acidosis Is this a current diagnosis for this admission?: Yes Plan: Secondary to starvation, IV fluid, dextrose and p.o. diet trial (3) Alcohol intoxication Qualifiers: Complication of substance-induced condition: uncomplicated Qualified Code( s): F10.920 - Alcohol use, unspecified with intoxication, uncomplicated Is this a current diagnosis for this admission?: Yes Plan: Education and supportive care (4) Hypoglycemia Is this a current diagnosis for this admission?: Yes Plan: Secondary to starvation, dextrose, diet and Accu-Cheks every 6 hours - Time Time Spent with patient: 25-34 minutes - Inpatient Certification Medical Necessity: Need Close Monitoring Due to Risk of Patient Decompensation
[2019-05-25 04:47] LABS: ANION GAP 5 (5-19); BLOOD UREA NITROGEN 20 mg/dL (7-20); CALCIUM 8.4 mg/dL (8.4-10.2); CARBON DIOXIDE 25 mmol/L (22-30); CHLORIDE 111 mmol/L (98-107); GLUCOSE 111 mg/dL (75-110); POTASSIUM 4.3 mmol/L (3.6-5.0)
[2019-05-25] MEDS ORDERED: HEPARIN SOD (PORCINE) 5,000 UNIT/ML 1 ML VIAL SUBCUT SCH (06:00)
[2019-05-25] MEDS ORDERED: DOCUSATE SODIUM 100 MG CAPSULE PO SCH (10:00)
[2019-05-25] MEDS ORDERED: NITROFURANTOIN MONOHYD/M-CRYST 100 MG CAPSULE PO SCH (10:00)
[2019-05-25 16:38] VITALS: BP 102/60
[2019-05-25] MEDS ORDERED: TRAZODONE HCL 50 MG TABLET PO SCH (22:00)
--- NOTE | 2019-05-26 11:11 | PDOC DISCHARGE SUMMARY ---
General - Admit/Disc Date/PCP Admission Date/Primary Care Provider: 05/24/19 22:25 Discharge Date: 05/25/19 - Discharge Diagnosis (1) Acidosis Is this a current diagnosis for this admission?: Yes (2) Acute encephalopathy Is this a current diagnosis for this admission?: Yes (3) Alcohol intoxication Is this a current diagnosis for this admission?: Yes (4) Hypoglycemia Is this a current diagnosis for this admission?: Yes - Additional Information Resuscitation Status: Full Code Discharge Diet: Regular Discharge Activity: Activity As Tolerated Prescriptions: Nitrofurantoin Monohyd/M-Cryst [Macrobid 100 mg Capsule] 100 mg PO BID #10 capsule Home Medications: Acetaminophen [Tylenol 325 mg Tablet] 325 mg PO Q4HP PRN tablet 05/25/19 Docusate Sodium [Colace 100 mg Capsule] 100 mg PO BID capsule 05/25/19 Nitrofurantoin Monohyd/M-Cryst [Macrobid 100 mg Capsule] 100 mg PO BID #10 capsule 05/25/19 History of Present Illness History of Present Illness: Per H&P by Dr. Balderas: ALESHIA GONZALEZ is a 58 year old female with a past medical history of anxiety presents with altered mental status. In the emergency room she is found to have hypoglycemia, metabolic acidosis and acutely intoxicated. She received glucose, IV fluids, supportive measures and referred to the hospitalist for admission. Patient is alert oriented x2 stating she believes she was having a panic attack when a friend gave her a little blue pill prior to her presentation. She is otherwise been dieting, drinking alcohol while taking weight loss supplements. She denies chest pain shortness of breath headache or palpitations. Hospital Course Hospital Course: Patient was admitted to the medical floor on continuous cardiac telemetry with monitoring of glucose. She was supported with IVF. She rapidly returned to baseline with resolution of her hypoglycemia and encephalopathy. At time of discharge, she is alert and oriented x 4, and independently ambulatory on room air. She is discharged to home in stable condition. She is advised to follow up with her primary care provider. She is instructed to STOP drinking alcohol and to not take medications that are not prescribed to her. She is encouraged to return to the emergency room as needed for concerning symptoms. Physical Exam Vital Signs: Temp Pulse Resp BP Pulse Ox 98.6 F 56 L 16 102/60 98 05/25/19 16:34 05/25/19 16:34 05/25/19 16:34 05/25/19 16:34 05/25/19 16:34 Intake & Output 05/24/19 05/25/19 05/26/19 06:59 06:59 06:59 Intake Total 1380 360 Balance 1380 360 Weight 63.1 kg General appearance: PRESENT: no acute distress, disheveled, well-developed, well-nourished Head exam: PRESENT: atraumatic, normocephalic Eye exam: PRESENT: conjunctiva pink, EOMI, PERRLA. ABSENT: scleral icterus Ear exam: PRESENT: normal external ear exam Mouth exam: PRESENT: moist, tongue midline Neck exam: ABSENT: carotid bruit, JVD, lymphadenopathy, thyromegaly Respiratory exam: PRESENT: clear to auscultation kwasi. ABSENT: rales, rhonchi, wheezes Cardiovascular exam: PRESENT: RRR. ABSENT: diastolic murmur, rubs, systolic murmur Pulses: PRESENT: normal dorsalis pedis pul Vascular exam: PRESENT: normal capillary refill GI/Abdominal exam: PRESENT: normal bowel sounds, soft. ABSENT: distended, guarding, mass, organolmegaly, rebound, tenderness Rectal exam: PRESENT: deferred Extremities exam: PRESENT: full ROM. ABSENT: calf tenderness, clubbing, pedal edema Musculoskeletal exam: PRESENT: ambulatory Neurological exam: PRESENT: alert, awake, oriented to person, oriented to place, oriented to time, oriented to situation, CN II-XII grossly intact. ABSENT: motor sensory deficit Psychiatric exam: PRESENT: appropriate affect, normal mood. ABSENT: homicidal ideation, suicidal ideation Skin exam: PRESENT: dry, intact, warm. ABSENT: cyanosis, rash Results Laboratory Results: 05/25/19 04:08 05/25/19 04:08 05/24/19 05/24/19 05/24/19 18:18 19:21 20:50 WBC RBC Hgb Hct MCV MCH MCHC RDW Plt Count Seg Neutrophils % Lymphocytes % Monocytes % Eosinophils % Basophils % Absolute Neutrophils Absolute Lymphocytes Absolute Monocytes Absolute Eosinophils Absolute Basophils VBG pH VBG pCO2 VBG HCO3 VBG Base Excess Sodium Potassium Chloride Carbon Dioxide Anion Gap BUN Creatinine Est GFR ( Amer) Est GFR (Non-Af Amer) Glucose Lactic Acid 2.1 Calcium Phosphorus 3.6 Magnesium 2.2 Urine Color YELLOW Urine Appearance SLIGHTLY-CLOUDY Urine pH 5.0 Ur Specific [place] 1.006 Urine Protein NEGATIVE Urine Glucose (UA) NEGATIVE Urine Ketones TRACE H Urine Blood NEGATIVE Urine Nitrite POSITIVE H Ur Leukocyte Esterase NEGATIVE Urine WBC (Auto) 0 Urine RBC (Auto) 1 05/24/19 05/25/19 05/25/19 20:50 01:43 04:08 WBC 6.0 RBC 3.86 Hgb 12.1 Hct 35.5 L MCV 92 MCH 31.4 MCHC 34.2 RDW 12.4 Plt Count 214 Seg Neutrophils % 47.9 Lymphocytes % 37.4 Monocytes % 10.4 Eosinophils % 3.1 Basophils % 1.2 Absolute Neutrophils 2.9 Absolute Lymphocytes 2.3 Absolute Monocytes 0.6 Absolute Eosinophils 0.2 Absolute Basophils 0.1 VBG pH 7.32 VBG pCO2 41.6 VBG HCO3 21.1 VBG Base Excess -4.6 Sodium Potassium Chloride Carbon Dioxide Anion Gap BUN Creatinine Est GFR ( Amer) Est GFR (Non-Af Amer) Glucose Lactic Acid 1.4 Calcium Phosphorus Magnesium Urine Color Urine Appearance Urine pH Ur Specific [place] Urine Protein Urine Glucose (UA) Urine Ketones Urine Blood Urine Nitrite Ur Leukocyte Esterase Urine WBC (Auto) Urine RBC (Auto) 05/25/19 04:08 WBC RBC Hgb Hct MCV MCH MCHC RDW Plt Count Seg Neutrophils % Lymphocytes % Monocytes % Eosinophils % Basophils % Absolute Neutrophils Absolute Lymphocytes Absolute Monocytes Absolute Eosinophils Absolute Basophils VBG pH VBG pCO2 VBG HCO3 VBG Base Excess Sodium 141.4 Potassium 4.3 Chloride 111 H Carbon Dioxide 25 Anion Gap 5 BUN 20 Creatinine 0.67 Est GFR ( Amer) > 60 Est GFR (Non-Af Amer) > 60 Glucose 111 H Lactic Acid Calcium 8.4 Phosphorus Magnesium Urine Color Urine Appearance Urine pH Ur Specific [place] Urine Protein Urine Glucose (UA) Urine Ketones Urine Blood Urine Nitrite Ur Leukocyte Esterase Urine WBC (Auto) Urine RBC (Auto) 05/24/19 18:18 Troponin I < 0.012 Impressions: Chest X-Ray 05/24/19 19:05 IMPRESSION: NO ACUTE FINDINGS. Qualifiers - * PATIENT BEING DISCHARGED WITH ANY OF THE FOLLOWING DIAGNOSIS: No Acute Heart Failure - Is this a Heart Failure Patient?: No Plan Discharge Plan: Patient is discharged with self care. Follow up with primary care provider within 1 week. STOP drinking alcohol. Do NOT use recreational drugs or take medications that are not prescribed to you. Drink plenty of water, eat as tolerated. Return to the emergency department as needed for concerning symptoms. Time Spent: Greater than 30 Minutes
== END 2019-05-25 18:40 | disposition home or self-care (01) ==
LOC: ER 18:07 → INTOOBSV 22:25 → EH 22:25 → 5 05-25 01:15
PROVIDERS: ADMIT Internal Medicine; ATTEND Internal Medicine
DX: E87.2 Acidosis (principal); G93.40 Encephalopathy, unspecified; F10.920 Alcohol use, unspecified with intoxication, uncomplicated; E16.2 Hypoglycemia, unspecified; F17.200 Nicotine dependence, unspecified, uncomplicated; T73.0XXA Starvation, initial encounter; X58.XXXA Exposure to other specified factors, initial encounter; I95.9 Hypotension, unspecified; F41.0 Panic disorder [episodic paroxysmal anxiety]; T42.4X4A Poisoning by benzodiazepines, undetermined, initial encounter; Z85.41 Personal history of malignant neoplasm of cervix uteri; Z90.49 Acquired absence of other specified parts of digestive tract; Z82.49 Family history of ischemic heart disease and other diseases of the circulatory system; Z73.3 Stress, not elsewhere classified; Z90.5 Acquired absence of kidney
CPT/HCPCS: 93005; 99291; 96360; 36415 ×2; 87040; 87086; 82962 ×2; 80307 ×4; 83735; 84100; 85025 ×2; 87088; 80048; 80053; 81001; 84484; 87186; 82803; 83605 ×2; 71045; 93010; G0378 ×3; J3490; J3480; J7030; J8499

== ENCOUNTER 2019-06-09 00:43 | Emergency (ER) | payer SELFPAY ==
[2019-06-09] MEDS ORDERED: ONDANSETRON HCL INJ/PF 4 MG/2 ML SDV IV ONE ×2 (01:52→04:00)
[2019-06-09] MEDS ORDERED: KETOROLAC TROMETHAMINE INJ/PF 30 MG/1 ML SDV IV ONE (01:52)
--- NOTE | 2019-06-09 01:57 | ER Document Report ---
ED Medical Screen (RME) - General Chief Complaint: Flank Pain Stated Complaint: VOMITTING Time Seen by Provider: 06/09/19 01:47 Notes: Patient is a 59-year-old female who presents to the emergency department with a chief complaint of abdominal pain and vomiting. She states that her symptoms started yesterday she did vomit a few times. Denies any gross hematemesis she states that she feels weak and confused. Patient states that she has been on antibiotics for a urinary tract infection, and is still currently taking them. Exam: Mildly tender mid to lower abdomen. I have greeted and performed a rapid initial assessment of this patient. A comprehensive ED assessment and evaluation of the patient, analysis of test results and completion of medical decision making process will be conducted by an additional ED providers. TRAVEL OUTSIDE OF THE [place] IN LAST 30 DAYS: No - Related Data Allergies/Adverse Reactions: No Known Drug Allergies Allergy (Verified 05/01/19 09:21) Past Medical History - Past Medical History Cardiac Medical History: Denies: Hx Congestive Heart Failure, Hx Heart Attack, Hx Hypertension Pulmonary Medical History: Denies: Hx Asthma, Hx Bronchitis, Hx COPD, Hx Pneumonia, Hx Tuberculosis Neurological Medical History: Denies: Hx Seizures Renal/ Medical History: Denies: Hx End Stage Renal Disease, Hx Kidney Stones, Hx Peritoneal Dialysis Malignancy Medical History: Reports: Hx Cervical Cancer GI Medical History: Reports: Hx Colonoscopy. Denies: Hx Cirrhosis, Hx Gastroesophageal Reflux Disease, Hx Ulcer Musculoskeltal Medical History: Denies Hx Arthritis, Denies Hx Multiple Sclerosis Psychiatric Medical History: Denies: Hx Bipolar Disorder, Hx Depression, Hx Schizophrenia Past Surgical History: Reports: Hx Cholecystectomy, Hx Hysterectomy, Hx Kidney (Renal Surgery) - left nephrectomy Physical Exam - Vital signs Vitals: Temp Pulse Resp BP Pulse Ox 98.1 F 76 24 H 113/73 96 06/09/19 00:53 06/09/19 00:53 06/09/19 00:53 06/09/19 00:53 06/09/19 00:53 Course - Vital Signs Vital signs: Temp Pulse Resp BP Pulse Ox 98.1 F 76 24 H 113/73 96 06/09/19 00:53 06/09/19 00:53 06/09/19 00:53 06/09/19 00:53 06/09/19 00:53
[2019-06-09 02:20] LABS: ABSOLUTE BASOPHILS # (AUTO) 0.1 10^3/uL (0.0-0.2); ABSOLUTE EOSINOPHILS # (AUTO) 0.3 10^3/uL (0.0-0.6); ABSOLUTE LYMPHOCYTES (AUTO) 2.7 10^3/uL (0.5-4.7); ABSOLUTE MONOCYTES (AUTO) 0.7 10^3/uL (0.1-1.4); ABSOLUTE NEUT (AUTO) 4.1 10^3/uL (1.7-8.2); EOSINOPHILS % (AUTO) 3.6 % (0-6); HEMATOCRIT 45.3 % (36.0-47.0); HEMOGLOBIN 15.3 g/dL (12.0-15.5); LYMPHOCYTES % (AUTO) 34.2 % (13-45); MEAN CORPUSCULAR HEMOGLOBIN 31.7 pg (27.0-33.4); MEAN CORPUSCULAR HGB CONC 33.8 g/dL (32.0-36.0); MEAN CORPUSCULAR VOLUME 94 fl (80-97); MONOCYTES % (AUTO) 8.6 % (3-13); PLATELET COUNT 313 10^3/uL (150-450); RED BLOOD COUNT 4.82 10^6/uL (3.72-5.28); RED CELL DISTRIBUTION WIDTH 13.3 % (11.5-14.0); SEGMENTED NEUTROPHILS % (AUTO) 52.6 % (42-78); TOTAL CELLS COUNTED % (AUTO) 100 %; WHITE BLOOD COUNT 7.9 10^3/uL (4.0-10.5)
[2019-06-09 02:43] LABS: ALBUMIN 4.5 g/dL (3.5-5.0); ALKALINE PHOSPHATASE 54 U/L (38-126); ANION GAP 11 (5-19); ASPARTATE AMINO TRANSFERASE 23 U/L (14-36); BILIRUBIN,DIRECT 0.2 mg/dL (0.0-0.4); BILIRUBIN,TOTAL 0.3 mg/dL (0.2-1.3); BLOOD UREA NITROGEN 20 mg/dL (7-20); CALCIUM 9.6 mg/dL (8.4-10.2); CARBON DIOXIDE 22 mmol/L (22-30); CHLORIDE 106 mmol/L (98-107); GLUCOSE 90 mg/dL (75-110); POTASSIUM 4.8 mmol/L (3.6-5.0); TOTAL PROTEIN 7.1 g/dL (6.3-8.2)
[2019-06-09 03:03] LABS: APPEARANCE,URINE SLIGHTLY-CLOUDY; BILIRUBIN,URINE NEGATIVE (NEGATIVE); CALCIUM OXALATE CRYSTALS,URINE RARE /HPF; COLOR,URINE YELLOW; GLUCOSE, URINE NEGATIVE (NEGATIVE); KETONES,URINE NEGATIVE (NEGATIVE); LEUKOCYTE ESTERASE,URINE LARGE (NEGATIVE); NITRITE,URINE POSITIVE (NEGATIVE); PROTEIN,URINE NEGATIVE (NEGATIVE); URINE SPECIFIC GRAVITY 1.015; UROBILINOGEN,URINE NEGATIVE mg/dL (<2.0)
[2019-06-09] MEDS ORDERED: CEPHALEXIN 500 MG CAPSULE PO ONE (04:01)
--- NOTE | 2019-06-09 04:06 | ER Document Report ---
ED General - General Chief Complaint: Flank Pain Stated Complaint: VOMITTING Time Seen by Provider: 06/09/19 01:47 TRAVEL OUTSIDE OF THE [place] IN LAST 30 DAYS: No - HPI Notes: Patient is a 59-year-old female that presents to the emergency department for chief complaint of dysuria. Patient states she has had dysuria for the last month. Yesterday she began vomiting and had one episode of emesis yesterday and one today. She reports feeling nauseated as well. She denies any associated fevers but does have some chills. Patient reports some lower abdominal pain that she describes as burning and constant over the last month as well. She was recently admitted to the hospital at the beginning of the month and was given a 5-day course of Macrobid which she states she finished. She denies being on any antibiotics since being in the hospital. Patient states she does not have a primary care doctor and thus has not followed up since her discharge. She states the urinary symptoms have not changed but the vomiting is new. She denies any alcohol consumption since her last hospitalization. Past Medical History: Anxiety Past Surgical History: Cholecystectomy, hysterectomy Social History: Occasional alcohol. Family History: Reviewed and noncontributory for presenting illness Allergies: Reviewed, see documented allergy list. REVIEW OF SYSTEMS: CONSTITUTIONAL : No fever chills No diaphoresis No recent illness EENT: No vision changes No congestion No sore throat CARDIOVASCULAR: No chest pain No palpitations RESPIRATORY: No shortness of breath No cough No difficulty breathing GASTROINTESTINAL: abdominal pain nausea vomiting No diarrhea GENITOURINARY: dysuria No hematuria No difficulty urinating MUSCULOSKELETAL: No back pain No leg pain No arm pain SKIN: No rashes No lesions LYMPHATIC: No swollen, enlarged glands. NEUROLOGICAL: No lightheadedness No headache No weakness No paresthesias PSYCHIATRIC: No anxiety No depression PHYSICAL EXAMINATION: Vital signs reviewed, nursing noted reviewed. GENERAL: Well-appearing, well-nourished and in no acute distress. HEAD: Atraumatic, normocephalic. EYES: Eyes appear normal, extraocular movements intact, sclera anicteric, conjunctiva are normal. ENT: nares patent, oropharynx clear without exudates. Moist mucous membranes. NECK: Normal range of motion, supple without lymphadenopathy LUNGS: Breath sounds clear to auscultation bilaterally and equal. No wheezes rales or rhonchi. HEART: Regular rate and rhythm without murmurs ABDOMEN: Soft, mild suprapubic tenderness. No rebound, guarding, or rigidity. No masses appreciated. EXTREMITIES: Nontender, good range of motion, no pitting or edema. NEUROLOGICAL: No focal neurological deficits. Moves all extremities spo ntaneously Motor and sensory grossly intact on exam. PSYCH: Anxious mood, normal affect. SKIN: Warm, Dry, normal turgor, no rashes or lesions noted on exposed skin - Related Data Allergies/Adverse Reactions: No Known Drug Allergies Allergy (Verified 05/01/19 09:21) Past Medical History - Social History Smoking Status: Current Every Day Smoker Family History: Hypertension, Other - Strong family history of Diverticulitis. Patient has suicidal ideation: No Patient has homicidal ideation: No - Past Medical History Cardiac Medical History: Denies: Hx Congestive Heart Failure, Hx Heart Attack, Hx Hypertension Pulmonary Medical History: Denies: Hx Asthma, Hx Bronchitis, Hx COPD, Hx Pneumonia, Hx Tuberculosis Neurological Medical History: Denies: Hx Seizures Renal/ Medical History: Denies: Hx End Stage Renal Disease, Hx Kidney Stones, Hx Peritoneal Dialysis Malignancy Medical History: Reports: Hx Cervical Cancer GI Medical History: Reports: Hx Colonoscopy. Denies: Hx Cirrhosis, Hx Gastroesophageal Reflux Disease, Hx Ulcer Musculoskeletal Medical History: Denies Hx Arthritis, Denies Hx Multiple Sclerosis Psychiatric Medical History: Denies: Hx Bipolar Disorder, Hx Depression, Hx Schizophrenia Past Surgical History: Reports: Hx Cholecystectomy, Hx Hysterectomy, Hx Kidney (Renal Surgery) - left nephrectomy Physical Exam - Vital signs Vitals: Temp Pulse Resp BP Pulse Ox 98.1 F 76 24 H 113/73 96 06/09/19 00:53 06/09/19 00:53 06/09/19 00:53 06/09/19 00:53 06/09/19 00:53 Course - Re-evaluation Re-evalutation: 06/09/19 04:04 Vitals reviewed. Nursing notes reviewed. Patient's lab work is unremarkable. She has no elevated WBC count. She has no severe electrolyte derangement and her renal function is normal. Urinalysis is positive for infection. Patient had a course of Macrobid earlier in the month. There is no urine culture results available for comparison. Patient will be started on Keflex for her persistent UTI. She is not septic and does not have any altered mental status. Patient is stable for discharge. She will be referred to [facility] to establish with primary care as an outpatient. She was counseled on return precautions and verbalized understanding. She is stable for discharge. Laboratory 06/09/19 06/09/19 06/09/19 02:05 02:05 02:45 WBC 7.9 RBC 4.82 Hgb 15.3 Hct 45.3 MCV 94 MCH 31.7 MCHC 33.8 RDW 13.3 Plt Count 313 Seg Neutrophils % 52.6 Lymphocytes % 34.2 Monocytes % 8.6 Eosinophils % 3.6 Basophils % 1.0 Absolute Neutrophils 4.1 Absolute Lymphocytes 2.7 Absolute Monocytes 0.7 Absolute Eosinophils 0.3 Absolute Basophils 0.1 Sodium 138.9 Potassium 4.8 Chloride 106 Carbon Dioxide 22 Anion Gap 11 BUN 20 Creatinine 0.81 Est GFR ( Amer) > 60 Est GFR (Non-Af Amer) > 60 Glucose 90 Calcium 9.6 Total Bilirubin 0.3 Direct Bilirubin 0.2 Neonat Total Bilirubin Not Reportable Neonat Direct Bilirubin Not Reportable Neonat Indirect Bili Not Reportable AST 23 ALT 14 Alkaline Phosphatase 54 Total Protein 7.1 Albumin 4.5 Lipase 348.6 H Urine Color YELLOW Urine Appearance SLIGHTLY-CLOUDY Urine pH 6.0 Ur Specific [place] 1.015 Urine Protein NEGATIVE Urine Glucose (UA) NEGATIVE Urine Ketones NEGATIVE Urine Blood NEGATIVE Urine Nitrite POSITIVE H Urine Bilirubin NEGATIVE Urine Urobilinogen NEGATIVE Ur Leukocyte Esterase LARGE H Urine WBC (Auto) 5 Urine RBC (Auto) 1 Urine Bacteria (Auto) TRACE Squamous Epi Cells Auto 3 Calcium Oxalate Cr Auto RARE Urine Mucus (Auto) RARE Urine Ascorbic Acid NEGATIVE - Vital Signs Vital signs: Temp Pulse Resp BP Pulse Ox 98.1 F 76 24 H 113/73 96 06/09/19 00:53 06/09/19 00:53 06/09/19 00:53 06/09/19 00:53 06/09/19 00:53 - Laboratory Result Diagrams: 06/09/19 02:05 06/09/19 02:05 Laboratory results interpreted by me: 06/09/19 06/09/19 02:05 02:45 Lipase 348.6 H Urine Nitrite POSITIVE H Ur Leukocyte Esterase LARGE H Discharge - Discharge Clinical Impression: Acute UTI Nausea and vomiting Qualifiers: Vomiting type: unspecified Vomiting Intractability: non-intractable Qualified Code(s): R11.2 - Nausea with vomiting, unspecified Condition: Stable Disposition: HOME, SELF-CARE Instructions: Urinary Tract Infection ([facility]), Cephalexin ([facility]) Additional Instructions: Please return to the emergency department if you have any worsening, or concern of your symptoms. Please return to the emergency department if you develop chest pain, difficulty breathing, severe abdominal pain, or ongoing vomiting. Please contact either the [facility] or the [facility] to establish with a primary care doctor for follow-up in the next 3 to 5 days If prescribed, take all medications as directed. If you have any questions or concerns do not hesitate to return the emergency department for evaluation. Prescriptions: Cephalexin Monohydrate [Keflex 500 mg Capsule] 500 mg PO BID 10 Days capsule Ondansetron [Zofran Odt 4 mg Tablet] 1 tab PO Q4H PRN #15 tab.rapdis PRN Reason: For Nausea/Vomiting Referrals: [facility] [Provider Group] - Follow up in 3-5 days [facility] [Provider Group] - Follow up in 3-5 days
[2019-06-09 04:43] VITALS: BP 126/87
== END 2019-06-09 04:43 | disposition home or self-care (01) ==
LOC: ER 00:43
DX: N39.0 Urinary tract infection, site not specified (principal); R30.0 Dysuria; R11.2 Nausea with vomiting, unspecified; R68.83 Chills (without fever); R10.30 Lower abdominal pain, unspecified; F17.200 Nicotine dependence, unspecified, uncomplicated; Z85.41 Personal history of malignant neoplasm of cervix uteri; Z90.49 Acquired absence of other specified parts of digestive tract; Z90.710 Acquired absence of both cervix and uterus; Z83.79 Family history of other diseases of the digestive system
CPT/HCPCS: 36415; 83690; 85025; 80053; 81001; J1885; J2405; 96374; 96375; 96376; 99284

== ENCOUNTER 2019-08-10 03:49 | Emergency (ER) | payer SELFPAY ==
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
[2019-08-10 04:33] LABS: HEMATOCRIT 46.7 % (36.0-47.0); MEAN CORPUSCULAR HEMOGLOBIN 31.9 pg (27.0-33.4); MEAN CORPUSCULAR HGB CONC 34.3 g/dL (32.0-36.0); MEAN CORPUSCULAR VOLUME 93 fl (80-97); PLATELET COUNT 354 10^3/uL (150-450); RED BLOOD COUNT 5.03 10^6/uL (3.72-5.28); RED CELL DISTRIBUTION WIDTH 13.3 % (11.5-14.0); WHITE BLOOD COUNT 8.8 10^3/uL (4.0-10.5)
[2019-08-10 04:53] LABS: ALBUMIN 4.8 g/dL (3.5-5.0); ALCOHOL 137 mg/dL (NONE DETECTED); ALKALINE PHOSPHATASE 61 U/L (38-126); ANION GAP 17 (5-19); ASPARTATE AMINO TRANSFERASE 18 U/L (14-36); BILIRUBIN,DIRECT 0.1 mg/dL (0.0-0.4); BILIRUBIN,TOTAL 0.3 mg/dL (0.2-1.3); BLOOD UREA NITROGEN 17 mg/dL (7-20); CALCIUM 9.8 mg/dL (8.4-10.2); CARBON DIOXIDE 21 mmol/L (22-30); CHLORIDE 104 mmol/L (98-107); GLUCOSE 102 mg/dL (75-110); POTASSIUM 3.7 mmol/L (3.6-5.0)
[2019-08-10 05:02] LABS: ACETAMINOPHEN < 10 ug/mL (10-30)
[2019-08-10 05:09] LABS: URINE AMPHETAMINES SCREEN UNCONFIRMED POSITIVE; URINE BARBITURATES SCREEN NEGATIVE; URINE BENZODIAZEPINES SCREEN NEGATIVE; URINE COCAINE SCREEN NEGATIVE; URINE MARIJUANA (THC) SCREEN NEGATIVE; URINE METHADONE SCREEN NEGATIVE; URINE PHENCYCLIDINE SCREEN NEGATIVE
[2019-08-10] MEDS ORDERED: ZIPRASIDONE HCL 20 MG CAPSULE PO ONE (05:30)
[2019-08-10 12:57] VITALS: BP 110/60
--- NOTE | 2019-08-10 16:54 | EKG REPORT ---
SEVERITY:- BORDERLINE ECG - SINUS TACHYCARDIA BORDERLINE T WAVE ABNORMALITIES : Confirmed by: Janelle Stevenson MD 10-Aug-2019 16:54:00
== END 2019-08-10 18:22 | disposition home or self-care (01) ==
LOC: ER 03:49
DX: S51.812A Laceration without foreign body of left forearm, initial encounter (principal); S51.811A Laceration without foreign body of right forearm, initial encounter; X83.8XXA Intentional self-harm by other specified means, initial encounter; F10.129 Alcohol abuse with intoxication, unspecified; F29 Unspecified psychosis not due to a substance or known physiological condition
CPT/HCPCS: 36415; 80053; 80307; 85027; 93005; 93010; 99284

== ENCOUNTER 2019-10-23 11:32 | Emergency (ER) | payer SELFPAY ==
[2019-10-23 12:35] VITALS: BP 107/78
[2019-10-23] MEDS ORDERED: IBUPROFEN 600 MG TABLET PO ONE (13:02)
[2019-10-23] MEDS ORDERED: ACETAMINOPHEN 325 MG TABLET PO ONE (13:02)
[2019-10-23] MEDS ORDERED: ONDANSETRON ODT 4 MG TAB (6 TAB/ER DISP) PO PRN (13:15)
--- NOTE | 2019-10-23 13:15 | ER Document Report ---
HPI - HPI Time Seen by Provider: 10/23/19 12:53 Pain Level: 1 Context: 59-year-old smoker presents to the emergency department with 6 days of flulike symptoms. Patient states that she has had intermittent fevers, headache, persistent painful cough, chest wall pain with cough, and general malaise. Patient states that the cough got acutely worse and she decided to get seen. Patient has not seen her primary doctor for this. - CONSTITUTIONAL Constitutional: REPORTS: Fever, Chills - EENT EENT: REPORTS: Sore Throat, Ear Pain - RESPIRATORY Respiratory: REPORTS: Coughing - REPRODUCTIVE Reproductive: DENIES: : Past Medical History - Social History Smoking Status: Current Some Day Smoker Chew tobacco use (# tins/day): No Frequency of alcohol use: None Drug Abuse: None Family History: Reviewed & Not Pertinent, Hypertension, Other - Strong family history of Diverticulitis. Patient has suicidal ideation: No Patient has homicidal ideation: No - Past Medical History Cardiac Medical History: Denies: Hx Congestive Heart Failure, Hx Heart Attack, Hx Hypertension Pulmonary Medical History: Denies: Hx Asthma, Hx Bronchitis, Hx COPD, Hx Pneumonia, Hx Tuberculosis Neurological Medical History: Denies: Hx Seizures, Hx Parkinson's Disease Renal/ Medical History: Denies: Hx End Stage Renal Disease, Hx Kidney Stones, Hx Peritoneal Dialysis Malignancy Medical History: Reports: Hx Cervical Cancer GI Medical History: Reports: Hx Colonoscopy. Denies: Hx Cirrhosis, Hx Gastroesophageal Reflux Disease, Hx Ulcer Musculoskeletal Medical History: Denies Hx Arthritis, Denies Hx Multiple Sclerosis Psychiatric Medical History: Denies: Hx Bipolar Disorder, Hx Depression, Hx Schizophrenia Past Surgical History: Reports: Hx Cholecystectomy, Hx Hysterectomy, Hx Kidney (Renal Surgery) - left nephrectomy Vertical Provider Document - CONSTITUTIONAL Notes: PHYSICAL EXAMINATION: Reviewed vital signs and charting by RN GENERAL: Alert, interacts well. No acute distress. HEAD: Normocephalic, atraumatic. EYES: Pupils equal and round. Extraocular movements intact. ENT: Oral mucosa moist, tongue midline. NECK: Full range of motion. Trachea midline. LUNGS: End expiratory wheezes heard in all [place], no rails or rhonchi. No respiratory distress. HEART: Tachycardia with regular rhythm. No murmur ABDOMEN: soft, non-tender. No distention. Bowel sounds present EXTREMITIES: Moves all 4 extremities spontaneously. No edema, No cyanosis. PSYCH: Normal affect, normal mood. SKIN: Warm, dry, normal turgor. No rashes or lesions noted. - INFECTION CONTROL TRAVEL OUTSIDE OF THE [place] IN LAST 30 DAYS: No Course - Re-evaluation Re-evalutation: 10/23/19 13:20 Patient presents with cough, vomiting, diarrhea, and fever at home consistent with a flulike illness. Clinical history and exam is not consistent with an acute bacterial meningitis, encephalitis, pneumonia, there is no evidence of a cellulitis on examination. Patient likewise denies any urinary symptoms. Patient does not have any focal abdominal tenderness to suggest an acute biliary pathology, acute appendicitis, acute mesenteric ischemia, bowel obstruction, bowel, or any other life-threatening acute intra-abdominal pathology as the etiology of the fever and additional symptoms today. Labs are otherwise unremar kable. Patient is tolerated oral intake without difficulty. Vitals at time of reassessment are within normal limits. At this time will discharge with return precautions and follow-up recommendations. Verbal discharge instructions given a the bedside and opportunity for questions given. Medication warnings reviewed. Patient is in agreement with this plan and has verbalized understanding of retu rn precautions and the need for primary care follow-up in the next 24-72 hours. - Vital Signs Vital signs: Temp Pulse Resp BP Pulse Ox 98.1 F 79 22 H 107/78 100 10/23/19 12:34 10/23/19 12:34 10/23/19 12:34 10/23/19 12:34 10/23/19 12:34 Discharge - Discharge Clinical Impression: Flu-like symptoms Condition: Good Disposition: HOME, SELF-CARE Additional Instructions: You have flulike symptoms. There is no treatment that is effective for this diagnosis other than supportive care at home. This includes drinking plenty of fluids, using Tylenol 1000 mg every 6 hours and/or ibuprofen 100 mg every 6 hours as needed for fever and discomfort, and Zofran as needed for nausea and vomiting. I have given you a prescription for a narcotic cough syrup that you can take 5 mL's every 4 hours as needed to help with cough suppression and chest wall pain. Please follow closely with you primary care physician the next 1-2 days regarding this diagnosis. Return to the emergency department immediately if you began to have persistent vomiting prevents you from being able to keep fluids down for more than 12 hours, you pass out, you began having difficulty breathing, you become confused, or you have any other symptoms that are worrisome to you. Prescriptions: Hydrocodone Bit/Homatropine [Hycodan Syrup 5-1.5 mg/5 ml Ud Cup] 5 ml PO Q4HP PRN #120 ml PRN Reason:
[2019-10-23] MEDS ORDERED: IPRATROPIUM/ALBUTEROL 0.5-2.5 MG/3 ML AMPUL NEB ONE (13:21)
[2019-10-23] MEDS ORDERED: ALBUTEROL SULFATE HFA (90 MCG/PUFF) 8 GM MDI (1 MDI/ER DISP) IH ONE (13:21)
[2019-10-23] MEDS ORDERED: DEXAMETHASONE SOD PHOS INJ 10 MG/1 ML VIAL IM ONE (13:21)
== END 2019-10-23 13:55 | disposition home or self-care (01) ==
LOC: ER 11:32
DX: J11.1 Influenza due to unidentified influenza virus with other respiratory manifestations (principal); R50.9 Fever, unspecified; R51 Headache; R05 Cough; R07.89 Other chest pain; R53.81 Other malaise; F17.200 Nicotine dependence, unspecified, uncomplicated
CPT/HCPCS: 94640; 99283; 96372; J1100; J3490; J7620

== ENCOUNTER 2020-05-21 05:25 | Emergency (ER) | payer SELFPAY ==
[2020-05-21] MEDS ORDERED: NORMAL SALINE 1000 ML 1,000 ML IV ONE (05:39)
[2020-05-21] MEDS ORDERED: ONDANSETRON HCL INJ/PF 4 MG/2 ML SDV IV ONE ×2 (05:41→10:14)
--- NOTE | 2020-05-21 05:42 | ER Document Report ---
ED GI/ - General Mode of Arrival: Medic Information source: Patient TRAVEL OUTSIDE OF THE [place] IN LAST 30 DAYS: No - HPI Patient complains to provider of: Abdominal pain, Vomiting Onset: This morning Timing/Duration: Gradual Quality of pain: Burning Pain Level: 4 Location: Other - Epigastric, umbilical Associated symptoms: Nausea, Vomiting. denies: Constipation, Diarrhea, Fever, Urinary hesitancy, Urinary frequency, Urinary retention Exacerbated by: Denies Relieved by: Denies Similar symptoms previously: No Recently seen / treated by doctor: No <JESSICA REYNSOO - Last Filed: 05/21/20 08:12> <ELLA MORROW - Last Filed: 05/21/20 19:30> - General Stated Complaint: ABDOMINAL PAIN Time Seen by Provider: 05/21/20 05:30 Primary Care Provider: OLESYA HUNTER MD [Primary Care Provider] - Follow up as needed Notes: Patient states that she woke up around 130 this morning with nausea and vomiting. Patient states that after the persistent vomiting she started to develop abdominal tenderness. Patient denies any fever. Patient denies any urinary symptoms. Patient restless on stretcher. Patient denies any substance abuse. (JESSICA REYNOSO) - Related Data Allergies/Adverse Reactions: No Known Drug Allergies Allergy (Verified 10/23/19 12:53) Past Medical History - General Information source: Patient - Social History Smoking Status: Current Every Day Smoker Frequency of alcohol use: None Drug Abuse: None Family History: Reviewed & Not Pertinent, Hypertension, Other - Strong family history of Diverticulitis. - Past Medical History Cardiac Medical History: Denies: Hx Congestive Heart Failure, Hx Heart Attack, Hx Hypertension Pulmonary Medical History: Denies: Hx Asthma, Hx Bronchitis, Hx COPD, Hx Pneumonia, Hx Tuberculosis Neurological Medical History: Denies: Hx Seizures, Hx Parkinson's Disease Renal/ Medical History: Denies: Hx End Stage Renal Disease, Hx Kidney Stones, Hx Peritoneal Dialysis Malignancy Medical History: Reports: Hx Cervical Cancer GI Medical History: Reports: Hx Colonoscopy. Denies: Hx Cirrhosis, Hx Gastroesophageal Reflux Disease, Hx Ulcer Musculoskeletal Medical History: Denies Hx Arthritis, Denies Hx Multiple Sclerosis Psychiatric Medical History: Denies: Hx Bipolar Disorder, Hx Depression, Hx Schizophrenia Past Surgical History: Reports: Hx Cholecystectomy, Hx Hysterectomy, Hx Kidney ( Renal Surgery) - left nephrectomy <JESSICA REYNOSO - Last Filed: 05/21/20 08:12> Review of Systems - Review of Systems Constitutional: No symptoms reported. denies: Fever EENT: No symptoms reported Cardiovascular: No symptoms reported. denies: Chest pain Respiratory: No symptoms reported. denies: Cough, Short of breath Gastrointestinal: Abdominal pain, Nausea, Vomiting. denies: Diarrhea Genitourinary: No symptoms reported. denies: Dysuria, Flank pain Female Genitourinary: No symptoms reported Musculoskeletal: No symptoms reported, Back pain Skin: No symptoms reported <JESSICA REYNOSO - Last Filed: 05/21/20 08:12> Physical Exam - General General appearance: Alert, Anxious In distress: None - HEENT Head: Normocephalic, Atraumatic Eyes: Normal Conjunctiva: Normal Nasal: Normal Mouth/Lips: Normal Mucous membranes: Normal Neck: Normal, Supple - Respiratory Respiratory status: No respiratory distress Chest status: Nontender Breath sounds: Normal. No: Rales, Rhonchi, Stridor, Wheezing Chest palpation: Normal - Cardiovascular Rhythm: Regular Heart sounds: S1 appreciated, S2 appreciated Murmur: No - Abdominal Inspection: Normal Distension: No distension Bowel sounds: Normal Tenderness: Tender - Epigastric, periumbilical - Extremities General upper extremity: Normal inspection, Nontender, Normal ROM General lower extremity: Normal inspection, Nontender, Normal ROM - Neurological Neuro grossly intact: Yes Cognition: Normal [place] Coma Scale Eye Opening: Spontaneous [place] Coma Scale Verbal: Oriented [place] Coma Scale Motor: Obeys Commands [place] Coma Scale Total: 15 - Psychological Associated symptoms: Anxious - Skin Skin Temperature: Warm Skin Moisture: Dry Skin Color: Normal <JESSICA REYNOSO - Last Filed: 05/21/20 08:12> - Vital signs Vitals: Temp Pulse Resp BP Pulse Ox 97.9 F 74 24 H 165/103 H 99 05/21/20 05:39 05/21/20 05:39 05/21/20 05:39 05/21/20 05:39 05/21/20 05:39 Course - Laboratory Result Diagrams: 05/21/20 05:35 05/21/20 05:35 <JESSICA REYNOSO - Last Filed: 05/21/20 08:12> - Laboratory Result Diagrams: 05/21/20 05:35 05/21/20 05:35 <ELLA MORROW - Last Filed: 05/21/20 19:30> - Re-evaluation Re-evalutation: 05/21/20 06:29 Patient dry heaving, additional medications ordered. 05/21/20 08:12 Patient no longer retching although complains of mild nausea. Patient's UDS positive for amphetamines. CT scan reviewed, no acute findings. Report and handoff given to TAYLOR Starks. (JESSICA REYNOSO) 05/21/20 10:[address] scan which showed no acute findings. It did show multiple cysts in the liver, small hiatal hernia in the left kidney that is absent. Her UDS is positive for amphetamines. When asked about this patient denies any amphetamine use or recreational drug use. She denies any urinary symptoms but her urinalysis shows that she does have a UTI. I will go ahead and treat this. She is in no acute distress when I am in the room. But begins to state she feels terrible. Her abdomen was palpated. It is soft, nontender, non distended. She states she has had an additional episode of vomiting. I was notified by the nurse that patient went to use the bathroom and afterwards had another episode of vomiting. Still feels nauseated. She is not actively retching in the room. I discussed with Dr. Hayward who recommends halidol. Patient was reevaluated after receiving halidol. She states she feels much better and is no longer nauseated. I discussed with her that her CT scan shows a small hiatal hernia and multiple cysts in the liver. She does have a slightly elevated white count. This could be due to her n/v or her UTI which we are treating. Her additional labs are unremarkable. Her second lactic acid is .9, decreased from 2.5. I recommend that she follows up with her primary care provider and also a GI doctor for further evaluation of the hiatal hernia and multiple liver cysts. I will discharge her with antinausea medication. She may follow up with the emergency department if she has worsening symptoms and development of new symptoms. Patient acknowledges and verbalizes understanding of instructions and plan. All questions answered. (ELLA MORROW) - Vital Signs Vital signs: Temp Pulse Resp BP Pulse Ox 98.7 F 74 16 127/73 H 99 05/21/20 13:10 05/21/20 05:39 05/21/20 12:25 05/21/20 12:25 05/21/20 12:25 - Laboratory Laboratory results interpreted by me: 05/21/20 05/21/20 05/21/20 05:35 05:35 05:35 WBC 16.4 H Hgb 15.6 H Lymph % (Auto) 11.0 L Absolute Neuts (auto) 13.2 H Seg Neutrophils % 80.3 H Sodium 136.9 L Carbon Dioxide 21 L Glucose 131 H Lactic Acid 2.5 H Urine Ketones Urine Blood Urine Nitrite Ur Leukocyte Esterase 05/21/20 06:26 WBC Hgb Lymph % (Auto) Absolute Neuts (auto) Seg Neutrophils % Sodium Carbon Dioxide Glucose Lactic Acid Urine Ketones TRACE H Urine Blood SMALL H Urine Nitrite POSITIVE H Ur Leukocyte Esterase TRACE H - EKG Interpretation by Me Additional EKG results interpreted by me: 05/21/20 18:10 EKg shows sinus rhythm, qtc of 472. No St Segment elevations or depressions. (ELLA MORROW) Discharge <JESSICA REYNOSO - Last Filed: 05/21/20 08:12> <ELLA MORROW - Last Filed: 05/21/20 19:30> - Discharge Clinical Impression: Hiatal hernia, Liver cyst Nausea & vomiting Qualifiers: Vomiting type: unspecified Vomiting Intractability: non-intractable Qualified Code(s): R11.2 - Nausea with vomiting, unspecified Urinary tract infection Qualifiers: Urinary tract infection type: site unspecified Hematuria presence: with hematuria Qualified Code(s): N39.0 - Urinary tract infection, site not specified Condition: Stable Disposition: HOME, SELF-CARE Instructions: Intravenous (IV) Fluids ([facility]), Urinary Tract Infection ([facility]), Vomiting ([facility]) Additional Instructions: Your CT scan shows a small hiatal hernia and multiple cyst in the liver. I do recommend that you have follow-up for this with your primary care provider and a GI specialist. Your urinalysis shows no signs of infection. I recommend that you follow-up with your primary care provider as soon as possible. Prescribe any medications for your nausea. You may return to the emergency department if you have worsening symptoms or development of new symptoms. Prescriptions: Cephalexin Monohydrate [Keflex 500 mg Capsule] 500 mg PO Q12 7 Days #14 capsule Pantoprazole Sodium [Protonix [address] Tablet] 20 mg PO DAILY #7 tablet. Ondansetron [Zofran Odt 4 mg Tablet] 1 - 2 tab PO Q4H PRN #15 tab.rapdis PRN Reason: For Nausea/Vomiting Referrals: OLESYA HUNTER MD [Primary Care Provider] - Follow up as needed
[2020-05-21 05:57] LABS: ABSOLUTE BASOPHILS # (AUTO) 0.1 10^3/uL (0.0-0.2); ABSOLUTE EOSINOPHILS # (AUTO) 0.1 10^3/uL (0.0-0.6); ABSOLUTE LYMPHOCYTES (AUTO) 1.8 10^3/uL (0.5-4.7); ABSOLUTE MONOCYTES (AUTO) 1.2 10^3/uL (0.1-1.4); ABSOLUTE NEUT (AUTO) 13.2 10^3/uL (1.7-8.2); BASOPHILS % (AUTO) 0.6 % (0-2); EOSINOPHILS % (AUTO) 0.7 % (0-6); HEMATOCRIT 45.2 % (36.0-47.0); HEMOGLOBIN 15.6 g/dL (12.0-15.5); MEAN CORPUSCULAR HEMOGLOBIN 31.8 pg (27.0-33.4); MEAN CORPUSCULAR HGB CONC 34.6 g/dL (32.0-36.0); MEAN CORPUSCULAR VOLUME 92 fl (80-97); MONOCYTES % (AUTO) 7.4 % (3-13); PLATELET COUNT 362 10^3/uL (150-450); RED BLOOD COUNT 4.91 10^6/uL (3.72-5.28); RED CELL DISTRIBUTION WIDTH 12.8 % (11.5-14.0); SEGMENTED NEUTROPHILS % (AUTO) 80.3 % (42-78); TOTAL CELLS COUNTED % (AUTO) 100 %; WHITE BLOOD COUNT 16.4 10^3/uL (4.0-10.5)
[2020-05-21 06:20] LABS: ALBUMIN 4.7 g/dL (3.5-5.0); ALKALINE PHOSPHATASE 75 U/L (38-126); ANION GAP 12 (5-19); ASPARTATE AMINO TRANSFERASE 21 U/L (14-36); BILIRUBIN,TOTAL 0.6 mg/dL (0.2-1.3); BLOOD UREA NITROGEN 19 mg/dL (7-20); CALCIUM 10.1 mg/dL (8.4-10.2); CARBON DIOXIDE 21 mmol/L (22-30); CHLORIDE 104 mmol/L (98-107); GLUCOSE 131 mg/dL (75-110); POTASSIUM 4.8 mmol/L (3.6-5.0); TOTAL PROTEIN 7.8 g/dL (6.3-8.2)
[2020-05-21 06:21] LABS: ALCOHOL < 10 mg/dL (NONE DETECTED)
[2020-05-21] MEDS ORDERED: DIPHENHYDRAMINE HCL 50 MG/ML VIAL IV ONE ×2 (06:31→10:52)
[2020-05-21] MEDS ORDERED: PROCHLORPERAZINE EDISYLATE INJ 10 MG/2 ML VIAL IV ONE ×2 (06:31→10:52)
[2020-05-21 06:45] LABS: APPEARANCE,URINE SLIGHTLY-CLOUDY; BILIRUBIN,URINE NEGATIVE (NEGATIVE); COLOR,URINE YELLOW; GLUCOSE, URINE NEGATIVE (NEGATIVE); KETONES,URINE TRACE mg/dL (NEGATIVE); LEUKOCYTE ESTERASE,URINE TRACE (NEGATIVE); NITRITE,URINE POSITIVE (NEGATIVE); PROTEIN,URINE NEGATIVE (NEGATIVE); UROBILINOGEN,URINE NEGATIVE mg/dL (<2.0)
[2020-05-21 07:04] LABS: URINE BARBITURATES SCREEN NEGATIVE; URINE BENZODIAZEPINES SCREEN NEGATIVE; URINE COCAINE SCREEN NEGATIVE; URINE MARIJUANA (THC) SCREEN NEGATIVE; URINE METHADONE SCREEN NEGATIVE; URINE PHENCYCLIDINE SCREEN NEGATIVE
[2020-05-21 07:05] LABS: URINE AMPHETAMINES SCREEN UNCONFIRMED POSITIVE
[2020-05-21] MEDS ORDERED: RINGERS SOLUTION,LACTATED 800 ML IV ONE (07:07)
[2020-05-21] MEDS ORDERED: CEFTRIAXONE 1 GM/D5W RTU 1 GM/50 ML RTUPB IV ONE (07:38)
--- NOTE | 2020-05-21 07:52 | RADIOLOGY REPORT (SQ) ---
CLINICAL HISTORY: abd pain, n/v COMPARISON: 09/10/2017. TECHNIQUE: CT ABDOMEN PELVIS WITH IV CONTRAST on 05/21/2020 6:32 AM CDT This exam was performed according to our departmental dose-optimization program, which includes automated exposure control, adjustment of the mA and/or kV according to patient size and/or use of iterative reconstruction technique. FINDINGS: Lower lungs are clear. Abdomen: There are multiple cysts within the liver with the largest measuring 3.1 cm. There is no biliary dilatation. There is a small hiatal hernia. Gallbladder is normal in appearance. The pancreas and spleen are normal in appearance. Left kidney is absent. Abdominal aorta is normal in course and caliber without aneurysm. There is no free air. There is no retroperitoneal adenopathy. Pelvis: There is no bowel obstruction. Urinary bladder is unremarkable. There is no free fluid. Hysterectomy was performed. Appendix is normal. Skeleton: There are no acute osseous findings. No suspicious bony lesions. IMPRESSION: No definite acute process.
--- NOTE | 2020-05-21 08:20 | EKG REPORT ---
SEVERITY:- NORMAL ECG - SINUS RHYTHM : Confirmed by: Janelle Stevenson MD 21-May-2020 08:19:59
[2020-05-21] MEDS ORDERED: HALOPERIDOL LACTATE INJ 5 MG/1 ML VIAL IV ONE (11:14)
[2020-05-21 12:33] VITALS: BP 127/73
== END 2020-05-21 13:10 | disposition home or self-care (01) ==
LOC: ER 05:25
DX: K44.9 Diaphragmatic hernia without obstruction or gangrene (principal); K76.89 Other specified diseases of liver; N39.0 Urinary tract infection, site not specified; R10.9 Unspecified abdominal pain; R11.2 Nausea with vomiting, unspecified; R10.13 Epigastric pain
CPT/HCPCS: 93005; 96376; 99284; 96361; 96375; 96365; 36415; 87086; 80307 ×2; 82550; 83605; 83690; 85025; 87088; 80053; 81001; 87186; 74177; 93010; J1200; J1630; J0780; J2405; J7030; J7120; J0696